=== PATIENT | female | born 1980 | race Caucasian/White ===

== ENCOUNTER 2017-06-20 05:53 | Inpatient (IN) | payer OTHER ==
[~2017-06-20] VITALS: Ht 165.1 cm; Wt 91.1 kg
[2017-06-20] VITALS (10 sets, daily range): BP systolic 102–124; BP diastolic 65–84; PULSE 102–111; TEMP 36.4–37.4; O2SAT 87–96; Ht 165.1 cm; Wt 91.1 kg
[~2017-06-20 05:53] MED LIST: MIRT15TA PO; NRN600 PO; SIMV40TA4 PO; SNQ/25 PO
[2017-06-20] MEDS ORDERED: GABA-112 PO (06:18)
[2017-06-20] MEDS ORDERED: GABA800T PO (06:18)
[2017-06-20 06:52] LABS: BASO ABS # 0.01 K/uL (0-0.2); EOS % 0.1 %; EOS ABS # 0.02 K/uL (0-0.5); HEMATOCRIT 37.7 % (37-47); HEMOGLOBIN 13.1 g/dL (12.0-16.0); LYMPH % 7.2 %; LYMPH ABS # 1.59 K/uL (1.2-3.4); MEAN CELL VOLUME 87.1 fL (80-100); MEAN CORPUSCULAR HEMOGLOBIN 30.3 pg (25-34); MEAN CORPUSCULAR HGB CONC 34.7 g/dl (32-36); MEAN PLATELET VOLUME 10.5 fL (7.4-10.4); MONO % 5.5 %; MONO ABS # 1.21 K/uL (0.11-0.59); NEUT % 86.7 %; NEUT ABS # 19.16 K/uL (1.4-6.5); PLATELET COUNT 236 K/uL (130-400); RED CELL DISTRIBUTION WIDTH CV 15.2 % (11.5-14.5); RED CELL DISTRIBUTION WIDTH SD 48.2 fL (36.4-46.3); WHITE BLOOD COUNT 22.09 K/uL (4.8-10.8)
[2017-06-20 06:56] LABS: ISTAT CREATININE 1.4 mg/dl (0.6-1.3); ISTAT IONIZED CALCIUM 1.17 mmol/l (1.12-1.32); ISTAT POTASSIUM 3.9 mEq/L (3.3-5.0)
[2017-06-20] MEDS ORDERED: CEFTRIAXONE SOD INJ 1 GM ADDVIAL IV STA (07:05)
--- NOTE | 2017-06-20 07:09 | EMERGENCY ROOM VISIT NOTE ---
History Report prepared by Shane: Speedy Last Under the Supervision of: Dr. Mark Marion M.D. First contact with patient: 06:33 Chief Complaint: OTHER COMPLAINT Stated Complaint: SEEING THINGS,ABD PAIN,VOMITING History of Present Illness The patient is a 36 year old female who presents to the Emergency Room with complaints of intermittent hallucinations beginning last night. The patient states that she was arrested last night, but notes that she has not taken any drugs today. She reports that she believed that she was hallucinating and talking to people who were not there. The patient states that she has not slept in the past three days. She notes that she has had a similar experience in the past when she was heavily intoxicated. She also complains of mild SOB, a headache, abdominal pain, chest pain in her upper chest, leg swelling, leg pain , and neck pain. She reports that she was falling a lot last night because she was unable to walk, causing her leg pain and swelling. The patient states that she was at the hospital yesterday for her neck pain. She denies any fever, urinary symptoms, taking any extra pills, and suicidal ideations. She notes that she has no history of mental health issues. Source of History: patient Onset: last night Position: head Quality: other (hallucinations) Timing: intermittent Associated Symptoms: + headache, + neck pain, + chest pain, + SOB (mild), + abdominal pain, No fevers, No urinary symptoms Note: She notes that she has not had a lot of sleep recently, leg swelling, and leg pain. She denies taking any extra pills and suicidal ideations. Review of Systems See HPI for pertinent positives & negatives. A total of 10 systems reviewed and were otherwise negative. Past Medical & Surgical Medical Problems: (1) Bilateral pneumonia (2) No chronic diseases present Old medical records were reviewed. Nurse's notes were reviewed and I agree with. Family History No pertinent family history stated. Social History Smoking Status: Current Every Day Smoker Drug Use: heroin Marital Status: single Occupation Status: unemployed Current/Historical Medications Scheduled Gabapentin (Neurontin), 200 MG PO TID Gabapentin (Neurontin), 800 MG PO TID Simvastatin (Zocor), 40 MG PO QPM Allergies Coded Allergies: No Known Allergies (Unverified , 06/20/17) Physical Exam Vital Signs Date Time Temp Pulse Resp B/P (MAP) Pulse Ox O2 Delivery O2 Flow Rate FiO2 12/16/17 08:31 114 20 99/49 88 Nasal Cannula 6.0 06/20/17 07:48 112 22 115/82 93 Nasal Cannula 6.0 06/20/17 07:09 99 22 126/95 92 Nasal Cannula 6.0 06/20/17 06:49 92 Nasal Cannula 6.0 06/20/17 06:49 92 Nasal Cannula 6.0 06/20/17 06:38 112 06/20/17 06:05 117 20 91 Nasal Cannula 6.0 06/20/17 06:03 36.7 127 22 150/87 74 Room Air Physical Exam General: Non-ill appearing 36 year old female in no acute distress. Appears comfortable on nasal cannula oxygen. Alert to person, place, and year, gets day wrong. HEENT: Normal cephalic atraumatic. Pupils are equal round and reactive to light. Extraocular movements are intact. Oropharynx is pink with moist mucous membranes. No swelling of the mouth lips or tongue. Neck: Supple with a midline trachea. No meningeal signs or stiffness, no JVD or bruits. No Stridor. Chest: Clear to auscultation bilaterally. No wheezes or rhonchi. No increased work of breathing. Heart: regular rate and rhythm. Abdomen: Soft nontender, nondistended without rebound guarding or rigidity. Extremities: No cyanosis clubbing or edema. No calf tenderness or assymetry Spine/Back. Non tender to palpation. No CVA tenderness Skin: Good turgor without rashes. Neurologic exam: Cranial nerves two through 12 are intact. Motor and sensation are intact and symmetrical throughout. No tremor. Medical Decision & Procedures ER Provider Diagnostic Interpretation: Radiology results as stated below per my review and radiologist interpretation: CHEST ONE VIEW PORTABLE FINDINGS: No focal lung consolidations. No pleural effusions. The heart is normal in size. Cervical spinal fusion hardware. Left supraclavicular subcutaneous emphysema. There is evidence for pneumomediastinum which extends into the neck. Gas within the apex of the left pleural is likely due to extension from the pneumomediastinum or could represent a tiny pneumothorax. Deformity within the right lateral ribs suggests old, healed fractures. IMPRESSION: Pneumomediastinum which extends into the extends into the neck. There is also trace gas within the left apical pleural space which could be due to extension of the pneumomediastinum or a tiny pneumothorax. Electronically signed by: Brian Bruce M.D. 06/20/2017 7:[address] NONCONTRAST Findings: There is soft tissue gas at the base of the skull. This corresponds to the pneumomediastinum seen on the prior chest x-ray. The paranasal sinuses and mastoid air cells are clear. The calvarium and skull base are intact. The ventricles and sulci are within normal limits. There is no mass, hematoma, midline shift, or acute infarct. Impression: No acute intracranial abnormality. Soft tissue gas at the skull base likely a result of the pneumomediastinum seen on the prior chest x-ray. Electronically signed by: Brian Bruce M.D. 06/20/2017 7:56 AM ABDOMEN AND PELVIS CT WITH IV CONTRAST FINDINGS: Please refer to the dedicated chest CT performed same day for further evaluation of the chest abnormalities. There is again noted pneumomediastinum. Trace extension of the pneumomediastinum into the retrocrural space. There is no pneumoperitoneum or pneumatosis. No acute fractures within the visualized osseous structures. The liver, gallbladder, pancreas, spleen, adrenal glands, and kidneys are unremarkable. No retroperitoneal lymphadenopathy. The bladder, uterus, and bilateral adnexa are unremarkable. No bowel wall thickening or obstruction. Normal appendix. IMPRESSION: 1. Please refer to the dedicated chest CT performed the same day for further evaluation of the chest abnormalities including the extensive pneumomediastinum. There is trace extension of the pneumomediastinum into the retrocrural space. 2. Otherwise, no significant abnormality identified within the abdomen or pelvis. 3. No bowel wall thickening or obstruction. 4. Normal appendix. Electronically signed by: Brian Bruce M.D. 06/20/2017 8:04 AM CHEST CTA for PULMONARY ARTERIES FINDINGS: There is extensive pneumomediastinum extends into the neck. No pneumothorax. No pleural effusions. The esophagus and trachea appear intact. Small amount of mucoid material within the proximal trachea and right mainstem bronchus. No mediastinal hematoma or mediastinal fluid. Trace posterior pericardial fluid. No mediastinal or hilar lymphadenopathy. Normal caliber thoracic aorta with no evidence for dissection. The heart is normal in size. Motion artifact resulting in suboptimal evaluation of some of the segmental and subsegmental pulmonary arteries. However, no definite filling defects identified within the pulmonary arteries to suggest pulmonary embolus. Old, healed right-sided rib fractures. No acute fractures identified within the visualized osseous structures. Extensive groundglass airspace opacities involving the majority of the upper lobes as well as patchy areas involving the bilateral lower lobes and right middle lobe. IMPRESSION: 1. Extensive pneumomediastinum which extends into the neck. 2. The esophagus and trachea are intact. 3. Trace pericardial fluid. No mediastinal hematoma or mediastinal fluid. 4. No evidence for pulmonary vessels limitations as described above. 5. Extensive groundglass airspace opacities seen throughout the lungs. This is consistent with a pneumonia.] Contusions are considered less likely. 6. Findings were discussed with Dr. Marion at 8:15 AM on 06/20/2017. Electronically signed by: Brian Bruce M.D. 06/20/2017 8:18 AM Laboratory Results 06/20/17 06:36 Red Blood Count 4.33, Mean Corpuscular Volume 87.1, Mean Corpuscular Hemoglobin 30.3, Mean Corpuscular Hemoglobin Concent 34.7, Mean Platelet Volume 10.5, Neutrophils (%) (Auto) 86.7, Lymphocytes (%) (Auto) 7.2, Monocytes (%) (Auto) 5.5, Eosinophils (%) (Auto) 0.1, Basophils (%) (Auto) 0.0, Neutrophils # (Auto) 19.16, Lymphocytes # (Auto) 1.59, Monocytes # (Auto) 1.21, Eosinophils # (Auto) 0.02, Basophils # (Auto) 0.01 06/20/17 06:36 Test 06/20/17 06:35 06/20/17 06:36 06/20/17 06:40 06/20/17 06:43 Lactic Acid Level 1.7 mmol/L (0.4-2.0) White Blood Count 22.09 K/uL (4.8-10.8) Red Blood Count 4.33 M/uL (4.2-5.4) Hemoglobin 13.1 g/dL (12.0-16.0) Hematocrit 37.7 % (37-47) Mean Corpuscular Volume 87.1 fL (80-100) Mean Corpuscular Hemoglobin 30.3 pg (25-34) Mean Corpuscular Hemoglobin Concent 34.7 g/dl (32-36) Platelet Count 236 K/uL (130-400) Mean Platelet Volume 10.5 fL (7.4-10.4) Neutrophils (%) (Auto) 86.7 % Lymphocytes (%) (Auto) 7.2 % Monocytes (%) (Auto) 5.5 % Eosinophils (%) (Auto) 0.1 % Basophils (%) (Auto) 0.0 % Neutrophils # (Auto) 19.16 K/uL (1.4-6.5) Lymphocytes # (Auto) 1.59 K/uL (1.2-3.4) Monocytes # (Auto) 1.21 K/uL (0.11-0.59) Eosinophils # (Auto) 0.02 K/uL (0-0.5) Basophils # (Auto) 0.01 K/uL (0-0.2) RDW Standard Deviation 48.2 fL (36.4-46.3) RDW Coefficient of Variation 15.2 % (11.5-14.5) Immature Granulocyte % (Auto) 0.5 % Immature Granulocyte # (Auto) 0.10 K/uL (0.00-0.02) D-Dimer 760 ug/L FEU (0-500) Est Creatinine Clear Calc Drug Dose 58.2 ml/min Estimated GFR () 53.3 Estimated GFR (Non- 46.0 BUN/Creatinine Ratio 21.9 (10-20) Calcium Level 9.6 mg/dl (8.5-10.1) Total Bilirubin 0.7 mg/dl (0.2-1) Aspartate Amino Transf (AST/SGOT) 102 U/L (15-37) Alanine Aminotransferase (ALT/SGPT) 47 U/L (12-78) Alkaline Phosphatase 89 U/L (45-117) Total Protein 8.4 gm/dl (6.4-8.2) Albumin 3.5 gm/dl (3.4-5.0) Globulin 4.9 gm/dl (2.5-4.0) Albumin/Globulin Ratio 0.7 (0.9-2) Lipase 49 U/L (73-393) Human Chorionic Gonadotropin, Qual NEG (NEG) Salicylates Level 4.2 mg/dl (2.8-20) Acetaminophen Level < 2 ug/ml (10-30) Bedside D-Dimer > 450 ng/mlFEU (0-450) Bedside Troponin I < 0.030 ng/ml (0-0.045) Bedside Hemoglobin 12.9 g/dl (12.0-16.0) Bedside Hematocrit 38 % (37-47) Bedside Sodium 142 mEq/L (135-144) Bedside Potassium 3.9 mEq/L (3.3-5.0) Bedside Chloride 108 mEq/L (101-112) Bedside Total CO2 24 mEq/l (24-31) Anion Gap 15.0 mmol/L (16-25) Bedside Blood Urea Nitrogen 30 mg/dl (7-18) Bedside Creatinine 1.4 mg/dl (0.6-1.3) Bedside Glucose (other) 108 mg/dl (70-99) Bedside Ionized Calcium (Aftab) 1.17 mmol/l (1.12-1.32) Test 06/20/17 06:49 06/20/17 07:50 Ethyl Alcohol mg/dL < 3.0 mg/dl (0-3) Influenza Type A Antigen Neg for Influ A (NEG) Influenza Type B Antigen Neg for Influ B (NEG) Laboratory studies as stated above per my review. Medications Administered Medications (Trade) Dose Ordered Sig/Mary Jane Route Start Time Stop Time Status Last Admin Dose Admin Ceftriaxone Sodium (Rocephin Inj) 2 gm NOW STAT IV 06/20/17 07:05 06/20/17 07:10 DC 06/20/17 07:14 2 GM Levofloxacin (Levaquin / D5W) 750 mg NOW STAT IV 06/20/17 08:15 06/20/17 08:17 DC 06/20/17 08:26 750 MG Sodium Chloride 1,000 ml @ 999 mls/hr Q1H1M STAT IV 06/20/17 08:16 06/20/17 09:16 DC 06/20/17 08:27 999 MLS/HR ECG Indication: altered mental status Rate (beats per minute): 114 Rhythm: sinus tachycardia Findings: no acute ischemic change, other (poor R wave progression) Comparison ECG Date: 05/22/2012 Change: no significant change ED Course 0635: Past medical records reviewed. The patient was evaluated in room A12, and a complete history and physical examination were performed. 0705: Rocephin Inj 2gm IV 0726: I reevaluated and updated the patient. She appears stable. She is awake and conversing. She notes that she has been feeling sick for months. 0758: I reevaluated and updated the patient. She is resting comfortably and has no new complaints. 0812: Upon reevaluation, the patient is stable. I discussed the results and treatment plan with the patient. She verbalized agreement of the treatment plan. The patient will be evaluated for further management. 0815: Levofloxacin 750mg IV 0817: I spoke to the radiologist who told me that the patient has a pneumomediastinum and pneumonia. 0845: I reevaluated the patient. She is resting comfortably. Her oxygen was bumped higher because she becomes more hypoxemic when she sleeps. Medical Decision Differential diagnoses include: cardiac disease, pulmonary disease, toxicologic symptoms, infectious symptoms, mental health symptoms, electrolyte/metabolic abnormality, PE, and trauma. This patient comes in as described above. She was brought in after apparently hallucinating. She was taken to senior care today. She does have a history in her chart of drug abuse although denies any. In triage she was noted to be hypoxemic. She's had multiple complaints while she is in the ER and they do seem to change when I see her. She tells me she's felt sick for about a month she also tells me she hasn't slept for about 3 days. She may have had some belly pain and. She does have a headache occasionally as well. No fall or trauma. Denies any alcohol use or intentional overdose. On my exam she appears well she answers most questions appropriately however does not get the date right. She has no focal neurologic deficits. She is nontoxic and non- lethargic appearing her neck is supple and freely mobile without any Kernig or Brudzinski signs. Extensive workup was obtained including multiple blood testing and blood cultures. Her white count was elevated at 22 however lactic acid is not elevated. Her chest x-ray shows increased markings centrally bilaterally concerning for either bilateral pneumonia or CHF. She also does have some pneumomediastinum. She has mild renal insufficiency although the rest of electrolytes look okay. her EKG shows some sinus tachycardia without ischemic changes. She was given Rocephin 2 g IV for broad-spectrum antibiotic coverage at as were sorting this out. I did do a CAT scan of her head as well as her chest and abdomen to rule out PE and other infectious etiologies as her d -dimer was elevated and she was hypoxemic. She was found to have large infiltrates bilaterally and was also given additional Levaquin 750 mg IV and 1 L IV normal saline bolus. The CAT scan of her head and abdomen unremarkable. She does have a large amount of pneumomediastinum. I think given her clinical picture she most likely had a pneumonia and has the pneumomediastinum from coughing. She appears in no distress she is mildly moderately hypoxemic but seems be tolerating oxygen well. She appears in no distress. I did discuss case Dr. Barajas and he is going to admit her. I'll also paged Dr. Carr to get pulmonary involved as well. The patient will be admitted for further inpatient treatment and evaluation Medication Reconcilliation Current Medication List: was personally reviewed by me Blood Pressure Screening Patient's blood pressure: Normal blood pressure Blood pressure disposition: Did not require urgent referral Consults Time Called: 0810 Consulting Physician: Dr. Barajas - [facility], [facility] [place] Returned Call: 0812 Discussed the patient's case. The patient will be evaluated for further management. Impression Primary Impression: Pneumomediastinum Additional Impressions: Pneumonia Hypoxemia Critical Care I have personally spent greater than 45 minutes of critical care time in the direct management of this patient. This includes bedside care, interpretation of diagnostic studies, and testing, discussion with consultants, patient, and family members, and other required patient management activities. This 45 minutes is in excess of all separately billable procedures. Scribe Attestation The scribe's documentation has been prepared under my direction and personally reviewed by me in its entirety. I confirm that the note above accurately reflects all work, treatment, procedures, and medical decision making performed by me. Departure Information Dispostion Being Evaluated By Hospitalist Referrals No Doctor, Assigned (PCP) Patient Instructions My [facility] Problem Qualifiers
[2017-06-20 07:10] LABS: ALBUMIN 3.5 gm/dl (3.4-5.0); CALCIUM 9.6 mg/dl (8.5-10.1); CREATININE 1.44 mg/dl (0.60-1.20); POTASSIUM 3.8 mmol/L (3.5-5.1)
[2017-06-20 07:13] LABS: TOTAL PROTEIN 8.4 gm/dl (6.4-8.2)
[2017-06-20] MEDS ORDERED: OPTIRAY 320 IV PRN (07:15)
--- NOTE | 2017-06-20 07:39 | DIAGNOSTIC IMAGING REPORT ---
CHEST ONE VIEW PORTABLE HISTORY: hypoxia COMPARISON: None. FINDINGS: No focal lung consolidations. No pleural effusions. The heart is normal in size. Cervical spinal fusion hardware. Left supraclavicular subcutaneous emphysema. There is evidence for pneumomediastinum which extends into the neck. Gas within the apex of the left pleural is likely due to extension from the pneumomediastinum or could represent a tiny pneumothorax. Deformity within the right lateral ribs suggests old, healed fractures. IMPRESSION: Pneumomediastinum which extends into the extends into the neck. There is also trace gas within the left apical pleural space which could be due to extension of the pneumomediastinum or a tiny pneumothorax. Electronically signed by: Brian Bruce M.D. 06/20/2017 7:37 AM Dictated Date/Time: 06/20/2017 7:34 AM
--- NOTE | 2017-06-20 07:57 | DIAGNOSTIC IMAGING REPORT ---
HEAD CT NONCONTRAST CT DOSE: 2423.66 mGy.cm HISTORY: eval for trauma TECHNIQUE: Multiaxial CT images of the head were performed without the use of intravenous contrast. Automated exposure control was utilized for this study. A dose lowering technique was utilized adhering to the principles of ALARA. Comparison: None. Findings: There is soft tissue gas at the base of the skull. This corresponds to the pneumomediastinum seen on the prior chest x-ray. The paranasal sinuses and mastoid air cells are clear. The calvarium and skull base are intact. The ventricles and sulci are within normal limits. There is no mass, hematoma, midline shift, or acute infarct. Impression: No acute intracranial abnormality. Soft tissue gas at the skull base likely a result of the pneumomediastinum seen on the prior chest x-ray. Electronically signed by: Brian Bruce M.D. 06/20/2017 7:56 AM Dictated Date/Time: 06/20/2017 7:51 AM
--- NOTE | 2017-06-20 08:05 | DIAGNOSTIC IMAGING REPORT ---
ABDOMEN AND PELVIS CT WITH IV CONTRAST CT DOSE: HISTORY: eval for elevated WBC TECHNIQUE: Multiaxial CT images of the abdomen and pelvis were performed following the use of intravenous contrast. A dose lowering technique was utilized adhering to the principles of ALARA. COMPARISON STUDY: None. FINDINGS: Please refer to the dedicated chest CT performed same day for further evaluation of the chest abnormalities. There is again noted pneumomediastinum. Trace extension of the pneumomediastinum into the retrocrural space. There is no pneumoperitoneum or pneumatosis. No acute fractures within the visualized osseous structures. The liver, gallbladder, pancreas, spleen, adrenal glands, and kidneys are unremarkable. No retroperitoneal lymphadenopathy. The bladder, uterus, and bilateral adnexa are unremarkable. No bowel wall thickening or obstruction. Normal appendix. IMPRESSION: 1. Please refer to the dedicated chest CT performed the same day for further evaluation of the chest abnormalities including the extensive pneumomediastinum. There is trace extension of the pneumomediastinum into the retrocrural space. 2. Otherwise, no significant abnormality identified within the abdomen or pelvis. 3. No bowel wall thickening or obstruction. 4. Normal appendix. Electronically signed by: Brian Bruce M.D. 06/20/2017 8:04 AM Dictated Date/Time: 06/20/2017 7:56 AM
[2017-06-20] MEDS ORDERED: LEVAQUIN 750MG / 150ML D5W IV STA (08:15)
[2017-06-20] MEDS ORDERED: SODIUM CHLORIDE 0.9% 1000ML 1,000 ML IV STA (08:16)
[2017-06-20] MEDS ORDERED: SODIUM CHLORIDE 0.9% 1000ML 1,000 ML IV ONE (08:16)
--- NOTE | 2017-06-20 08:19 | DIAGNOSTIC IMAGING REPORT ---
CHEST CTA for PULMONARY ARTERIES CT DOSE: HISTORY: Chest congestion. Mid chest pain. TECHNIQUE: Multiaxial CT images of the chest were performed following the intravenous administration of contrast to evaluate the pulmonary arteries. Maximal intensity projection images were also obtained. A dose lowering technique was utilized adhering to the principles of ALARA. COMPARISON STUDY: Chest 06/20/2017. FINDINGS: There is extensive pneumomediastinum extends into the neck. No pneumothorax. No pleural effusions. The esophagus and trachea appear intact. Small amount of mucoid material within the proximal trachea and right mainstem bronchus. No mediastinal hematoma or mediastinal fluid. Trace posterior pericardial fluid. No mediastinal or hilar lymphadenopathy. Normal caliber thoracic aorta with no evidence for dissection. The heart is normal in size. Motion artifact resulting in suboptimal evaluation of some of the segmental and subsegmental pulmonary arteries. However, no definite filling defects identified within the pulmonary arteries to suggest pulmonary embolus. Old, healed right-sided rib fractures. No acute fractures identified within the visualized osseous structures. Extensive groundglass airspace opacities involving the majority of the upper lobes as well as patchy areas involving the bilateral lower lobes and right middle lobe. IMPRESSION: 1. Extensive pneumomediastinum which extends into the neck. 2. The esophagus and trachea are intact. 3. Trace pericardial fluid. No mediastinal hematoma or mediastinal fluid. 4. No evidence for pulmonary vessels limitations as described above. 5. Extensive groundglass airspace opacities seen throughout the lungs. This is consistent with a pneumonia.] Contusions are considered less likely. 6. Findings were discussed with Dr. Marion at 8:15 AM on 06/20/2017. Electronically signed by: Brian Bruce M.D. 06/20/2017 8:18 AM Dictated Date/Time: 06/20/2017 8:04 AM
[2017-06-20] MEDS ORDERED: ALUMINUM/MAGNESIUM/SIMETH (MAALOX MAX) 30 ML UDC PO PRN (08:30)
[2017-06-20] MEDS ORDERED: ONDANSETRON INJ 2 MG/ML 2 ML VIAL IV PRN (08:30)
[2017-06-20] MEDS ORDERED: PIPERACILL/TAZOBAC IV 4.5 GM in DEXTROSE 5% 100ML 100 ML IV SCH (08:30)
[2017-06-20 08:57] LABS: INFLUENZA B ANTIGEN Neg for Influ B (NEG)
[2017-06-20] MEDS ORDERED: PIPERACILL/TAZOBAC CONSULT ACTIVE PRN (09:45)
[2017-06-20] MEDS ORDERED: PNEUMOCOCCAL POLYSACCHARIDES 25 MCG/0.5 ML VIAL/SYR IM. ONE (10:00)
[2017-06-20] MEDS ORDERED: INFLUENZA ADMINISTRATION CHARGE ONE (10:00)
[2017-06-20] MEDS ORDERED: PIPERACILL/TAZOBAC IV 3.375 GM in DEXTROSE 5% 100ML IV ONE (10:00)
[2017-06-20] MEDS ORDERED: INFLUENZA VIRUS QUAD VACCINE 0.5 ML SYR IM. ONE (10:00)
[2017-06-20] MEDS ORDERED: PNEUMOCOCCAL ADMINISTRATION CHARGE ONE (10:00)
[2017-06-20 12:03] LABS: HEP C IGG 13 YRS+OLDER_RFLX PRELIM POS (NEG)
[2017-06-20] MEDS: GABAPENTIN 800 MG TAB PO SCH ×2 (14:32→20:18)
[2017-06-20] MEDS: SODIUM CHLORIDE 0.9% 1000ML 1,000 ML IV SCH ×2 (14:33→23:48)
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
[2017-06-20] MEDS: PIPERACILL/TAZOBAC IV 3.375 GM in DEXTROSE 5% 100ML IV SCH ×2 (16:08→23:46)
--- NOTE | 2017-06-20 17:11 | History and Physical ---
History & Physical Date & Time of Service: Jun 20, 2017 at 17:02 Chief Complaint: Bilateral Pneumonia Primary Care Physician: No Doctor, Assigned History of Present Illness 36-year-old incarcerated female brought to our ER after was found to be hallucinating after arrest. The patient states over the last few weeks to months she's had increased cough has been nonproductive and increased dyspnea on exertion. She is also felt dizzy and one day prior to her rest she actually fell down onto her buttocks after entering her home. She does have a history of a seizure disorder but she does not feel this is a seizure she did not lose consciousness nor have any postevent confusion. The patient does admit to smoking cigarettes and marijuana and has smoked crack cocaine in the past she denies any recent exposure to cocaine or inhalation of other chemicals such as paint or computer duster. She also has not smoked any opiates that she is aware of mixed in with her marijuana. In the emergency room she was found have a markedly abnormal chest x-ray and CT scan consistent with bilateral pneumonia likely nontypical an elevated white blood cell count she was profoundly hypoxic but augmented nicely with the OxiMax. She knows to be hepatitis C positive has used IV drugs in the past and in the past she's been tested for HIV and hepatitis B and has been negative for both she does consent in the presence of the penitentiary guards accompanying her to have an HIV test redrawn and I educated her on the ramifications of the results Past Medical/Surgical History Cervical spine and lumbar spine surgery, reported seizure disorder reported peripheral neuropathy tobacco and marijuana abuse no alcohol use Family History Patient states that there is colon cancer and lung cancer in her family Social History Smoking Status: Current Every Day Smoker Alcohol Use: none Drug Use: heroin, marijuana Marital Status: single Occupational Status: unemployed Multi-Drug Resistant Organisms History of MDRO: No Allergies Coded Allergies: No Known Allergies (Unverified , 06/20/17) Home Medications Scheduled Gabapentin (Neurontin), 200 MG PO TID Gabapentin (Neurontin), 800 MG PO TID Simvastatin (Zocor), 40 MG PO QPM Review of Systems Constitutional: + weakness, No fever, No chills, No weight loss Eyes: No worsening of vision, No eye pain ENT: No hearing loss, No unusual epistaxis Respiratory: + cough, + sputum, + shortness of breath, + dyspnea on exertion, + dyspnea at rest Cardiovascular: + orthopnea, + PND, No chest pain, No edema Abdomen: No pain, No nausea, No vomiting, No diarrhea, No constipation Musculoskeletal: + joint pain, + muscle pain, + swelling Genitourinary - Female: No dysuria, No urinary frequency Neurologic: + weakness, + numbness/tingling, No memory loss, No paralysis Psychiatric: No depression symptoms, No anhedonism Endocrine: + fatigue, No excessive thirst Integumentary: No rash, No itch Physical Exam Vital Signs Date Time Temp Pulse Resp B/P (MAP) Pulse Ox O2 Delivery O2 Flow Rate FiO2 06/20/17 15:29 36.7 102 22 124/84 (97) 90 Nasal Cannula 6.0 06/20/17 12:14 90 Nasal Cannula 6.0 06/20/17 12:01 36.4 111 19 116/77 (90) 90 Nasal Cannula 6.0 06/20/17 09:43 36.5 111 20 119/81 94 Nasal Cannula 4.0 06/20/17 09:42 93 Nasal Cannula 4.0 06/20/17 09:41 36.5 111 20 119/81 (94) 93 Nasal Cannula 4.0 06/20/17 09:02 112 20 122/60 93 Oxymask 8.0 06/20/17 08:43 116 06/20/17 08:36 91 Oxymask 8.0 06/20/17 08:31 114 20 99/49 88 Nasal Cannula 6.0 06/20/17 07:48 112 22 115/82 93 Nasal Cannula 6.0 06/20/17 07:09 99 22 126/95 92 Nasal Cannula 6.0 06/20/17 06:49 92 Nasal Cannula 6.0 06/20/17 06:49 92 Nasal Cannula 6.0 06/20/17 06:38 112 06/20/17 06:05 117 20 91 Nasal Cannula 6.0 06/20/17 06:03 36.7 127 22 150/87 74 Room Air General Appearance: WD/WN, + moderate distress Head: normocephalic, atraumatic Eyes: PERRL, EOMI ENT: + pertinent finding (oral thrush was present) Neck: supple, no carotid bruits Respiratory/Chest: + respiratory distress, + decreased breath sounds, + accessory muscle use, + rhonchi Cardiovascular: no murmur, + tachycardia, + pertinent finding (no peripheral stigmata of endocarditis) Abdomen/GI: normal bowel sounds, non tender, soft Back: normal inspection, no CVA tenderness, + pertinent finding (mild paraspinous muscular tenderness) Extremities/Musculoskelatal: no pedal edema, normal range of motion Neurologic/Psych: alert, oriented x 3 Skin: normal color, warm/dry, no rash Diagnostics Laboratory Results Results Past 24 Hours Test 06/20/17 06:35 06/20/17 06:36 06/20/17 06:40 06/20/17 06:43 Range/Units Lactic Acid Level 1.7 0.4-2.0 mmol/L White Blood Count 22.09 4.8-10.8 K/uL Red Blood Count 4.33 4.2-5.4 M/uL Hemoglobin 13.1 12.0-16.0 g/dL Hematocrit 37.7 37-47 % Mean Corpuscular Volume 87.1 80-100 fL Mean Corpuscular Hemoglobin 30.3 25-34 pg Mean Corpuscular Hemoglobin Concent 34.7 32-36 g/dl Platelet Count 236 130-400 K/uL Mean Platelet Volume 10.5 7.4-10.4 fL Neutrophils (%) (Auto) 86.7 % Lymphocytes (%) (Auto) 7.2 % Monocytes (%) (Auto) 5.5 % Eosinophils (%) (Auto) 0.1 % Basophils (%) (Auto) 0.0 % Neutrophils # (Auto) 19.16 1.4-6.5 K/uL Lymphocytes # (Auto) 1.59 1.2-3.4 K/uL Monocytes # (Auto) 1.21 0.11-0.59 K/uL Eosinophils # (Auto) 0.02 0-0.5 K/uL Basophils # (Auto) 0.01 0-0.2 K/uL RDW Standard Deviation 48.2 36.4-46.3 fL RDW Coefficient of Variation 15.2 11.5-14.5 % Immature Granulocyte % (Auto) 0.5 % Immature Granulocyte # (Auto) 0.10 0.00-0.02 K/uL D-Dimer 760 0-500 ug/L FEU Sodium Level 138 136-145 mmol/L Potassium Level 3.8 3.5-5.1 mmol/L Chloride Level 106 98-107 mmol/L Carbon Dioxide Level 24 21-32 mmol/L Anion Gap 8.0 15.0 16-25 mmol/L Blood Urea Nitrogen 32 7-18 mg/dl Creatinine 1.44 0.60-1.20 mg/dl Est Creatinine Clear Calc Drug Dose 58.2 ml/min Estimated GFR () 53.3 Estimated GFR (Non- 46.0 BUN/Creatinine Ratio 21.9 10-20 Random Glucose 103 70-99 mg/dl Calcium Level 9.6 8.5-10.1 mg/dl Total Bilirubin 0.7 0.2-1 mg/dl Aspartate Amino Transf (AST/SGOT) 102 15-37 U/L Alanine Aminotransferase (ALT/SGPT) 47 12-78 U/L Alkaline Phosphatase 89 45-117 U/L Total Protein 8.4 6.4-8.2 gm/dl Albumin 3.5 3.4-5.0 gm/dl Globulin 4.9 2.5-4.0 gm/dl Albumin/Globulin Ratio 0.7 0.9-2 Lipase 49 73-393 U/L Human Chorionic Gonadotropin, Qual NEG NEG Salicylates Level 4.2 2.8-20 mg/dl Acetaminophen Level < 2 10-30 ug/ml Bedside D-Dimer > 450 0-450 ng/mlFEU Bedside Troponin I < 0.030 0-0.045 ng/ml Bedside Hemoglobin 12.9 12.0-16.0 g/dl Bedside Hematocrit 38 37-47 % Bedside Sodium 142 135-144 mEq/L Bedside Potassium 3.9 3.3-5.0 mEq/L Bedside Chloride 108 101-112 mEq/L Bedside Total CO2 24 24-31 mEq/l Bedside Blood Urea Nitrogen 30 7-18 mg/dl Bedside Creatinine 1.4 0.6-1.3 mg/dl Bedside Glucose (other) 108 70-99 mg/dl Bedside Ionized Calcium (Aftab) 1.17 1.12-1.32 mmol/l Test 06/20/17 06:49 06/20/17 07:50 06/20/17 10:14 Range/Units Ethyl Alcohol mg/dL < 3.0 0-3 mg/dl Influenza Type A Antigen Neg for Influ A NEG Influenza Type B Antigen Neg for Influ B NEG Hepatitis B Surface Antigen NEG NEG Hepatitis B Surface Antibody NEG Hepatitis C Antibody PRELIM POS NEG HIV (1&2) Ab and P24 Ag, 4th Gener NEG NEG Microbiology Results 06/20/17 Blood Culture, Received Pending 06/20/17 Blood Culture, Received Pending 06/20/17 MRSA DNA Surveillance Screen - Final, Complete Specimen Positive for MRSA by DNA Probe Diagnostic Radiology Patient had CT scan of her head without acute intracranial injury she had CT scan of her chest showing bilateral pneumonia and no pulmonary embolism with pneumo mediastinal present and a small left pneumothorax CT abdomen and pelvis without any significant abnormalities Normal EKG (except for tachycardia) Impression Assessment and Plan (1) Bilateral pneumonia (2) Pneumomediastinum (3) Hypoxemia 28-year-old incarcerated female with a history of hepatitis C and drug use presents with bilateral pneumonia Bilateral pneumonia and concern for atypical organisms, pulmonary medicine is seen and is also working out for possibility of a vasculitis or pneumonitis. There is some documentation of tuberculosis exposure but pulmonary medicine does not feel the patient needs to be in respiratory isolation at this time. QuantiFERON gold is sent Patient has been initiated on Zosyn and Levaquin 750 blood cultures obtained sputum cultures are ordered Hypoxic respiratory failure likely from an pneumonia augmented nicely with OxiMax-telemetry unit due to the degree of hypoxia, hypoxia is felt to be the origin of her hallucinations Oral thrush is seen concern for immune suppression HIV test is reordered and fluconazole as ordered With a history of seizure disorder we'll maintain her Neurontin Patient is on Zocor this will be held Lovenox apparent for DVT prevention Advanced Directives Existing Living Will: No Existing Power of [employer]: No VTE Prophylaxis VTE Risk Assessment Done? Y/N: Yes Risk Level: Moderate Problem Qualifiers (1) Bilateral pneumonia: Pneumonia type: due to unspecified organism Lung location: unspecified part of lung Qualified Codes: J18.9 - Pneumonia, unspecified organism
--- NOTE | 2017-06-20 18:10 | NUR ---
A: Patient became very restless, flushed, complaining about being cold then hot, pulse ox was 75% on RA, applied 9L oximask and oxygen stats rebounded to low 90's. Asked the guards to ring for help when the patient needs to be toileted.
[2017-06-20] MEDS: ACETAMINOPHEN 325 MG TAB PO PRN (18:38)
[2017-06-20 18:56] LABS: PTT PATIENT 31.3 SECONDS (21.0-31.0)
--- NOTE | 2017-06-20 20:00 | NUR ---
A: A: Pt found to be oriented but lethargic. Pt was able to answer questions appropriately but would quickly drift back to sleep. Pt has on a oxymask at 7L and is maintaining o2 sat's in the med 90's. VS WNL and Pt is ST in the 100's. See EMR for further documentation. Pt will continue to be monitored.
[2017-06-21] VITALS (12 sets, daily range): BP systolic 112–130; BP diastolic 69–80; PULSE 97–114; TEMP 36.6–37.4; O2SAT 90–99
--- NOTE | 2017-06-21 04:00 | NUR ---
A: Pt requiring an oxymask with 9L of o2. Pt's O2 saturations drop rapidly and she quickly becomes SOB if she takes the mask off for even the faintest moment. O2 saturations continue to remain in the mid 90's. VS stable and Pt remains in a ST in the 110's. See EMR for further documentation. Pt will continue to be monitored.
[2017-06-21] MEDS: ACETAMINOPHEN 325 MG TAB PO PRN ×2 (05:33→21:19)
[2017-06-21] MEDS: LEVOFLOXACIN / D5W 750 MG in PREMIXED IN D5W 150 ML IV SCH (08:00)
--- NOTE | 2017-06-21 08:09 | Progress Note ---
Subjective Date of Service: Jun 21, 2017. Subjective this pt looks improved but still with significant hypoxia Problem List Medical Problems: (1) Hypoxemia Status: Acute (2) Pneumomediastinum Status: Acute (3) Pneumonia Status: Acute Review of Systems Constitutional: + weakness, + fatigue, No fever, No chills Respiratory: + cough, + shortness of breath, + dyspnea on exertion, + dyspnea at rest, No sputum Cardiac: No chest pain, No edema Abdomen: No pain, No nausea, No vomiting Female : No dysuria, No urinary frequency, No hematuria Psychiatric: + depression symptoms, + anxiety Objective Vital Signs Date Time Temp Pulse Resp B/P (MAP) Pulse Ox O2 Delivery O2 Flow Rate FiO2 06/21/17 07:32 36.8 105 20 130/74 (92) 99 Mask 9.0 06/21/17 04:00 95 Room Air 8.0 06/21/17 04:00 37.4 108 24 128/80 (96) 95 Oxymask 8.0 06/21/17 00:00 36.7 106 21 114/74 (87) 90 Nasal Cannula 8.0 06/21/17 00:00 90 Room Air 8.0 06/20/17 20:00 96 Room Air 7.0 06/20/17 19:36 37.4 104 22 102/65 (77) 96 Oxymask 7.0 06/20/17 18:12 87 Oxymask 9.0 06/20/17 18:06 36.6 108 108/72 (84) 06/20/17 16:00 Oxymask 6.0 06/20/17 15:29 36.7 102 22 124/84 (97) 90 Nasal Cannula 6.0 06/20/17 12:14 90 Nasal Cannula 6.0 06/20/17 12:01 36.4 111 19 116/77 (90) 90 Nasal Cannula 6.0 06/20/17 09:43 36.5 111 20 119/81 94 Nasal Cannula 4.0 06/20/17 09:42 93 Nasal Cannula 4.0 06/20/17 09:41 36.5 111 20 119/81 (94) 93 Nasal Cannula 4.0 06/20/17 09:02 112 20 122/60 93 Oxymask 8.0 06/20/17 08:43 116 06/20/17 08:36 91 Oxymask 8.0 06/20/17 08:31 114 20 99/49 88 Nasal Cannula 6.0 Physical Exam General Appearance: WD/WN, + severe distress Eyes: normal inspection, sclerae normal Neck: supple, no adenopathy, + pertinent finding (subcutaneous crepitence) Respiratory/Chest: + decreased breath sounds, + accessory muscle use, + rhonchi Cardiovascular: no murmur, + tachycardia Abdomen: normal bowel sounds, non tender, soft Extremities: no pedal edema, no calf tenderness Neurologic/Psychiatric: alert, oriented x 3 Laboratory Results Last 24 Hours Test 06/20/17 10:14 06/20/17 18:25 06/21/17 07:59 Hepatitis B Surface Antigen NEG Hepatitis B Surface Antibody NEG Hepatitis C Antibody PRELIM POS HIV (1&2) Ab and P24 Ag, 4th Gener NEG Prothrombin Time 10.6 SECONDS Prothromb Time International Ratio 1.0 Activated Partial Thromboplast Time 31.3 SECONDS Partial Thromboplastin Ratio 1.2 Assessment and Plan (1) Bilateral pneumonia Assessment & Plan: pt has MRSA swab positive adding vancomycin to zosyn and levaquin (2) Pneumomediastinum (3) Hypoxemia (4) Acute renal failure (5) Hepatitis C (6) Leukocytosis 28-year-old incarcerated female with a history of hepatitis C and drug use presents with bilateral pneumonia Bilateral pneumonia and concern for atypical organisms, pulmonary medicine is seen and is also working out for possibility of a vasculitis or pneumonitis. There is some documentation of tuberculosis exposure but pulmonary medicine does not feel the patient needs to be in respiratory isolation at this time. QuantiFERON gold is sent Patient has been initiated on Zosyn and Levaquin 750, mrsa swab is positive, adding vancomycin 06/21 blood cultures obtained sputum cultures are ordered Hypoxic respiratory failure improving but still significant, hypoxia is felt to be the origin of her hallucinations Acute kidney injury maintian ivf and follow Oral thrush is seen concern for immune suppression HIV test negative, hep C positive, fluconazole as ordered history of seizure disorder continue Neurontin Patient is on Zocor this will be held Lovenox apparent for DVT prevention Problem Qualifiers (1) Bilateral pneumonia: Pneumonia type: due to unspecified organism Lung location: unspecified part of lung Qualified Codes: J18.9 - Pneumonia, unspecified organism (2) Hepatitis C: Viral hepatitis chronicity: unspecified
[2017-06-21 08:31] LABS: HEMATOCRIT 32.8 % (37-47); HEMOGLOBIN 11.2 g/dL (12.0-16.0); MEAN CELL VOLUME 87.9 fL (80-100); MEAN CORPUSCULAR HGB CONC 34.1 g/dl (32-36); MEAN PLATELET VOLUME 10.1 fL (7.4-10.4); PLATELET COUNT 200 K/uL (130-400); RED CELL DISTRIBUTION WIDTH CV 15.7 % (11.5-14.5); RED CELL DISTRIBUTION WIDTH SD 50.8 fL (36.4-46.3); WHITE BLOOD COUNT 12.85 K/uL (4.8-10.8)
[2017-06-21] MEDS: GABAPENTIN 800 MG TAB PO SCH ×3 (08:50→21:12)
[2017-06-21] MEDS: ENOXAPARIN 40 MG/0.4 ML SYR SQ SCH (08:51)
[2017-06-21] MEDS: PIPERACILL/TAZOBAC IV 3.375 GM in DEXTROSE 5% 100ML IV SCH ×3 (08:51→23:59)
[2017-06-21] MEDS: FLUCONAZOLE SUSP 100 MG/10 ML UDP PO SCH (09:00)
[2017-06-21 09:07] LABS: CALCIUM 8.3 mg/dl (8.5-10.1); CREATININE 0.87 mg/dl (0.60-1.20); POTASSIUM 3.3 mmol/L (3.5-5.1)
[2017-06-21] MEDS: SODIUM CHLORIDE 0.9% 1000ML 1,000 ML IV SCH ×2 (10:23→21:12)
--- NOTE | 2017-06-21 10:29 | DIAGNOSTIC IMAGING REPORT ---
VENOUS DOPPLER LWR EXT BILA CLINICAL HISTORY: 36 years-old Female presenting with Rule out DVTs, bilateral pneumonia, lower extremity edema left greater than right. TECHNIQUE: Real-time grayscale and color and spectral Doppler ultrasound imaging of the veins of the bilateral lower extremities was performed. Compression and augmentation were also utilized. COMPARISON: CT of the chest from 06/20/2017. FINDINGS: Right: Common femoral vein: Patent. Femoral vein: Patent. Greater saphenous vein: Patent. Popliteal vein: Patent. Calf veins: Patent. Left: Common femoral vein: Patent. Femoral vein: Patent. Greater saphenous vein: Patent. Popliteal vein: Patent. Calf veins: Patent. Other: None. IMPRESSION: No evidence of deep venous thrombosis. Electronically signed by: Herson Delong M.D. 06/21/2017 10:28 AM Dictated Date/Time: 06/21/2017 10:26 AM
[2017-06-21] MEDS ORDERED: VANCOMYCIN CONSULT ACTIVE PRN (11:30)
--- NOTE | 2017-06-21 11:44 | Pharmacy Progress Note ---
Pharmacy Abx Initial Consult Date of Service Jun 21, 2017. Pharmacy Dosing Scope Date of Consult: 06/21/17 Consultation requested by: Dr. Barajas Pharmacy is consulted to initiate Vancomycin IV dosing therapy, order appropriate labs and adjust drug dose/frequency. Subjective The patient is a 36 year old female admitted on Jun 20, 2017 at 08:32. Objective Height (Feet): 5 Height (Inches): 5.00 Weight (Kilograms): 88.400 Vital Signs (Past 12Hrs) Vital Signs Past 12 Hours Date Time Temp Pulse Resp B/P (MAP) Pulse Ox O2 Delivery O2 Flow Rate FiO2 06/21/17 11:28 36.6 98 19 116/74 (88) 93 Mask 9.0 06/21/17 09:12 99 Venturi Mask 9.0 06/21/17 08:21 95 Room Air 9.0 06/21/17 07:32 36.8 105 20 130/74 (92) 99 Mask 9.0 06/21/17 04:00 95 Room Air 8.0 06/21/17 04:00 37.4 108 24 128/80 (96) 95 Oxymask 8.0 06/21/17 00:00 36.7 106 21 114/74 (87) 90 Nasal Cannula 8.0 06/21/17 00:00 90 Room Air 8.0 Lab Results (24Hrs) Laboratory Tests (24 Hours) Test 06/21/17 07:59 White Blood Count 12.85 K/uL (4.8-10.8) H Micro Results Date/Time Source Procedure Growth Status 06/20/17 14:14 Blood Blood Culture Pending Received 06/20/17 14:06 Blood Blood Culture Pending Received 06/20/17 10:40 Nasal MRSA DNA Surveillance Screen - Final Specimen Positive for MRSA by DNA Probe Complete Assessment & Plan Assessment 36 year old incarcerated female with history of Hepatitis C, IV drug use admitted to the hospital hypoxic. Plan Vancomycin for treatment of bilateral Pneumonia with positive MRSA nasal swab. Vancomycin IV * Loading dose: 2000 mg (22.7 mg/kg) x1 dose ordered for noon today. * Maintenance dose: 1500 mg IV (17 mg/kg) every 12 hours to start tonight. * Estimated P'kinetics: Ke = 0.084 /hr, t1/2 = 8.3 hrs, Vd = 0.7 L/kg/ * Goal trough level for Pneumonia: 15 to 30 mcg/mL * Trough Vancomycin level ordered for 06/23/17 before dose at 1000. Pharmacy will continue to follow and will adjust dose/frequency as necessary. Thank you.
[2017-06-21] MEDS ORDERED: VANCOMYCIN IV 2,000 MG in SODIUM CHLORIDE 0.9% 500ML 500 ML IV SCH (12:00)
--- NOTE | 2017-06-21 15:42 | Pulmonology Progress Note ---
Pulmonary Progress Note Date of Service Jun 21, 2017. Attending Dr. Carr Subjective Patient was asleep but easily arousable. During our conversation she was not very engaging but did not complain of any active signs or symptoms. Objective Patient easily arousable able to complete full sentences and set up in bed showing no signs of respiratory insufficiency: VS: I/Os: +2.3L SaO2%: 90-99% FiO2: 5-9 liters RR: 19-24 HR: 97-108 Resp: Minimal rhonchi bilaterally Card: S1-S2 regular rate and rhythm no murmurs rubs or gallops appreciated Abd: Positive bowel sounds soft nontender Ext: 1+ pitting edema left greater than right Studies WBC: 22K--13K Ig IgA: 202 IgM: >245 Pending: ANCA panel, mycoplasma, hypersensitivity pneumonitis panel, QuantiFERON GOLD Microbiology: Blood cultures pending Nasal MRSA DNA probe: Positive Venous Dopplers bilateral lower extremity: Within normal limits Active pulmonary Medications: 1. Vancomycin IV 2. Fluconazole 100 mg 3. Levofloxacin 750 mg 4. Zosyn Assessment & Plan 36-year-old female mid with bilateral pulmonary infiltrates, pneumomediastinum associated hypoxemia: 1. Pulmonary: At this time the patient is overall respiratory status has improved were able to titrate down on her oxygen supplementation. Her workup has not shown any definitive findings but there is still multiple labs/serum studies are pending such as hypersensitivity pneumonitis panel, legionnaires workup, mycoplasma, vasculitic and connective tissue disease evaluations. Along with that sputum evaluation for atypical infection/AFB, fungal bacterial and possible legionnaires an eosinophil percentage is also pending. As the patient is improving as she has had a notable drop her leukocytosis and I agree with continuing current antibiotic therapy especially since the patient is MRSA nasal positive. 2. Lower extremity swelling: No signs of DVTs by bilateral lower extremity Doppler evaluation. 3. Thrush: Patient currently being treated with fluconazole 100 mg daily for 7 day window. Data Medications: Current Inpatient Medications Medications (Trade) Dose Ordered Sig/Mary Jane Route Start Time Stop Time Status Last Admin Dose Admin Ioversol (Optiray 320) 111 ml UD PRN IV 06/20/17 07:15 06/24/17 07:14 Acetaminophen (Tylenol Tab) 650 mg Q4H PRN PO 06/20/17 08:30 07/20/17 08:29 12/17/17 05:33 650 MG Al Hydrox/Mg Hydrox/Simethicone (Maalox Max Susp) 15 ml Q4H PRN PO 06/20/17 08:30 07/20/17 08:29 Ondansetron HCl (Zofran Inj) 4 mg Q6H PRN IV 06/20/17 08:30 07/20/17 08:29 Levofloxacin 750 mg/Prmx 150 ml @ 100 mls/hr Q24H IV 06/21/17 08:00 06/27/17 07:59 06/21/17 08:00 100 MLS/HR Piperacillin Sod/ Tazobactam Sod 3.375 gm/Dextrose 115 ml @ 28.75 mls/ hr Q8H IV 06/20/17 16:00 06/27/17 15:59 06/21/17 08:51 28.75 MLS/HR Piperacillin Sod/ Tazobactam Sod (Consult) 1 ea UD PRN N/A 06/20/17 09:45 07/20/17 09:44 Gabapentin (Neurontin Tab) 800 mg TID PO 06/20/17 14:00 07/20/17 13:59 06/21/17 13:24 800 MG Sodium Chloride 1,000 ml @ 100 mls/hr Q10H IV 06/20/17 14:00 07/20/17 13:59 06/21/17 10:23 100 MLS/HR Fluconazole (Diflucan Susp) 100 mg QAM PO 06/21/17 09:00 06/27/17 08:59 06/21/17 09:00 100 MG Enoxaparin Sodium (Lovenox Inj) 40 mg QAM SQ 06/21/17 09:00 07/21/17 08:59 06/21/17 08:51 40 MG Vancomycin HCl (Consult) 1 ea UD PRN N/A 06/21/17 11:30 07/21/17 11:29 Vancomycin HCl 1500 mg/Sodium Chloride 530 ml @ 200 mls/hr Q12H IV 06/21/17 22:00 06/28/17 09:59 I & O: 24-Hour Column 06/22/17 08:00 Intake Total 1994 ml Balance 1994 ml Vital Signs: Date Time Temp Pulse Resp B/P (MAP) Pulse Ox O2 Delivery O2 Flow Rate FiO2 06/21/17 15:24 37.2 97 22 116/76 (89) 92 Oxymask 5.0 06/21/17 12:54 95 Room Air 9.0 06/21/17 11:28 36.6 98 19 116/74 (88) 93 Mask 9.0 06/21/17 09:12 99 Venturi Mask 9.0 06/21/17 08:21 95 Room Air 9.0 06/21/17 07:32 36.8 105 20 130/74 (92) 99 Mask 9.0 06/21/17 04:00 95 Room Air 8.0 06/21/17 04:00 37.4 108 24 128/80 (96) 95 Oxymask 8.0 06/21/17 00:00 36.7 106 21 114/74 (87) 90 Nasal Cannula 8.0 06/21/17 00:00 90 Room Air 8.0 06/20/17 20:00 96 Room Air 7.0 06/20/17 19:36 37.4 104 22 102/65 (77) 96 Oxymask 7.0 06/20/17 18:12 87 Oxymask 9.0 06/20/17 18:06 36.6 108 108/72 (84) 06/20/17 16:00 Oxymask 6.0 Laboratory Results: Last 24 Hours Test 06/20/17 18:25 06/21/17 07:59 Prothrombin Time 10.6 SECONDS Prothromb Time International Ratio 1.0 Activated Partial Thromboplast Time 31.3 SECONDS Partial Thromboplastin Ratio 1.2 White Blood Count 12.85 K/uL Red Blood Count 3.73 M/uL Hemoglobin 11.2 g/dL Hematocrit 32.8 % Mean Corpuscular Volume 87.9 fL Mean Corpuscular Hemoglobin 30.0 pg Mean Corpuscular Hemoglobin Concent 34.1 g/dl RDW Standard Deviation 50.8 fL RDW Coefficient of Variation 15.7 % Platelet Count 200 K/uL Mean Platelet Volume 10.1 fL Sodium Level 138 mmol/L Potassium Level 3.3 mmol/L Chloride Level 110 mmol/L Carbon Dioxide Level 23 mmol/L Anion Gap 5.0 mmol/L Blood Urea Nitrogen 17 mg/dl Creatinine 0.87 mg/dl Est Creatinine Clear Calc Drug Dose 96.3 ml/min Estimated GFR () 97.9 Estimated GFR (Non- 84.5 BUN/Creatinine Ratio 19.0 Random Glucose 124 mg/dl Calcium Level 8.3 mg/dl Immunoglobulin G 719.0 mg/dL Immunoglobulin A 202.0 mg/dL Immunoglobulin M 245.0 mg/dL
--- NOTE | 2017-06-21 20:00 | NUR ---
A: Sleeping soundly, answer questions appropriately, IV's infusing, voiding dark yellow urine, poor appetite.
[2017-06-21] MEDS ORDERED: VANCOMYCIN IV 1,500 MG in SODIUM CHLORIDE 0.9% 500ML 500 ML IV SCH (22:00)
[2017-06-22] VITALS (9 sets, daily range): BP systolic 106–122; BP diastolic 68–81; PULSE 85–114; TEMP 36.4–37.6; O2SAT 93–96
--- NOTE | 2017-06-22 00:01 | NUR ---
A/ID: REFER TO EMR FOR HEAD TO TOE ASSESSMENT. PT DENIES COMPLAINTS OF PAIN OR SHORTNESS OF BREATH AT PRESENT TIME. VSS. IV FLUIDS AND INT ABX PER ORDERS. PLACED PT ON N.C. AT THIS TIME AT 5L HUMIDIFIED OXYGEN- CONTINUOUS PULSE OX INTACT. GUARDS X2 AT BEDSIDE. CALL SANCHEZ WITHIN REACH, WILL CONTINUE TO MONITOR. UNKNOWN D/C AT THIS TIME.
--- NOTE | 2017-06-22 04:00 | NUR ---
A: REFER TO EMR FOR HEAD TO TOE ASSESSMENT. PT DENIES COMPLAINTS OF PAIN OR SHORTNESS OF BREATH AT PRESENT TIME. VSS. IV FLUIDS PER ORDERS. GUARDS X2 AT BEDSIDE. CALL SANCHEZ WITHIN REACH, WILL CONTINUE TO MONITOR.
[2017-06-22] MEDS: PIPERACILL/TAZOBAC IV 3.375 GM in DEXTROSE 5% 100ML IV SCH ×3 (07:37→23:40)
[2017-06-22] MEDS: SODIUM CHLORIDE 0.9% 1000ML 1,000 ML IV SCH (07:37)
[2017-06-22] MEDS: LEVOFLOXACIN / D5W 750 MG in PREMIXED IN D5W 150 ML IV SCH (07:37)
[2017-06-22 07:57] LABS: CALCIUM 8.2 mg/dl (8.5-10.1); CREATININE 0.66 mg/dl (0.60-1.20); POTASSIUM 3.3 mmol/L (3.5-5.1)
[2017-06-22] MEDS: FLUCONAZOLE SUSP 100 MG/10 ML UDP PO SCH (09:00)
--- NOTE | 2017-06-22 09:10 | Family Medicine Progress Note ---
Progress Note Date of Service Jun 22, 2017. Subjective Pt evaluation today including: conversation w/ patient, physical exam, chart review, lab review, review of inpatient medication list Pain: No pain reported PO Intake: Tolerating PO intake Voiding: no voiding problems Ms. Oliver reports she feels slightly better today. She states she still feels short of breath, worse with exertion. She states she remains with her occasional cough that is non-productive. She also reports she had another episode of hallucinations last night where she was lying in bed and saw a dinosaur outside her window. She denies chest pain, abdominal pain or swelling in her legs. Constitutional: No fever, No chills Respiratory: + cough, + wheezing, + shortness of breath, + dyspnea on exertion, No sputum, No hemoptysis Cardiovascular: No chest pain Abdomen: No pain, No nausea, No vomiting, No diarrhea All Other Systems: Reviewed and Negative Medications Current Inpatient Medications Medications (Trade) Dose Ordered Sig/Mary Jane Route Start Time Stop Time Status Last Admin Dose Admin Ioversol (Optiray 320) 111 ml UD PRN IV 06/20/17 07:15 06/24/17 07:14 Acetaminophen (Tylenol Tab) 650 mg Q4H PRN PO 06/20/17 08:30 07/20/17 08:29 06/21/17 21:19 650 MG Al Hydrox/Mg Hydrox/Simethicone (Maalox Max Susp) 15 ml Q4H PRN PO 06/20/17 08:30 07/20/17 08:29 Ondansetron HCl (Zofran Inj) 4 mg Q6H PRN IV 06/20/17 08:30 07/20/17 08:29 Levofloxacin 750 mg/Prmx 150 ml @ 100 mls/hr Q24H IV 06/21/17 08:00 06/27/17 07:59 06/22/17 07:37 100 MLS/HR Piperacillin Sod/ Tazobactam Sod 3.375 gm/Dextrose 115 ml @ 28.75 mls/ hr Q8H IV 06/20/17 16:00 06/27/17 15:59 06/22/17 07:37 28.75 MLS/HR Piperacillin Sod/ Tazobactam Sod (Consult) 1 ea UD PRN N/A 06/20/17 09:45 07/20/17 09:44 Gabapentin (Neurontin Tab) 800 mg TID PO 06/20/17 14:00 07/20/17 13:59 06/21/17 21:12 800 MG Sodium Chloride 1,000 ml @ 100 mls/hr Q10H IV 06/20/17 14:00 07/20/17 13:59 06/22/17 07:37 100 MLS/HR Fluconazole (Diflucan Susp) 100 mg QAM PO 06/21/17 09:00 06/27/17 08:59 06/21/17 09:00 100 MG Enoxaparin Sodium (Lovenox Inj) 40 mg QAM SQ 06/21/17 09:00 07/21/17 08:59 06/21/17 08:51 40 MG Vancomycin HCl (Consult) 1 ea UD PRN N/A 06/21/17 11:30 07/21/17 11:29 Vancomycin HCl 1500 mg/Sodium Chloride 530 ml @ 200 mls/hr Q12H IV 06/21/17 22:00 06/28/17 09:59 06/21/17 22:05 200 MLS/HR Objective Vital Signs Date Time Temp Pulse Resp B/P (MAP) Pulse Ox O2 Delivery O2 Flow Rate FiO2 06/22/17 08:47 Oxymask 4.0 06/22/17 08:47 93 Nasal Cannula 5.0 06/22/17 08:11 37.0 102 19 114/72 (86) 94 Nasal Cannula 5.0 06/22/17 04:45 37.6 114 20 110/69 (83) 94 Nasal Cannula 5.0 06/22/17 04:00 Oxymask 4.0 06/21/17 23:59 Oxymask 4.0 06/21/17 23:07 37.2 106 20 112/69 (83) 96 Oxymask 4.0 06/21/17 20:00 92 Oxymask 4.0 06/21/17 19:51 37.2 114 20 122/77 (92) 91 Nasal Cannula 4.0 06/21/17 16:30 95 Room Air 9.0 06/21/17 15:24 37.2 97 22 116/76 (89) 92 Oxymask 5.0 06/21/17 12:54 95 Room Air 9.0 06/21/17 11:28 36.6 98 19 116/74 (88) 93 Mask 9.0 06/21/17 09:12 99 Venturi Mask 9.0 Physical Exam General Appearance: WD/WN, no apparent distress Respiratory/Chest: chest non-tender, no respiratory distress, no accessory muscle use, + decreased breath sounds, + wheezing, + pertinent finding ( decreased air entry at bases) Cardiovascular: regular rate, rhythm, no edema, no gallop, no JVD, no murmur Abdomen: normal bowel sounds, non tender, soft, no organomegaly, no pulsatile mass Laboratory Results Last 24 Hours Test 06/21/17 16:05 06/22/17 07:10 Urine Color YELLOW Urine Appearance CLOUDY Urine pH 5.0 Urine Specific [place] 1.033 Urine Protein 1+ Urine Glucose (UA) NEG Urine Ketones 1+ Urine Occult Blood 2+ Urine Nitrite NEG Urine Bilirubin NEG Urine Urobilinogen NEG Urine Leukocyte Esterase NEG Urine WBC (Auto) 5-10 /hpf Urine RBC (Auto) 0-4 /hpf Urine Hyaline Casts (Auto) 5-10 /lpf Urine Epithelial Cells (Auto) >30 /lpf Urine Bacteria (Auto) NEG Urine Yeast (Auto) Urine Opiates Screen POS Urine Methadone, Qualitative NEG Urine Barbiturates NEG Urine Phencyclidine (PCP) Level NEG Ur Amphetamine/Methamphetamine NEG MDMA (Ecstasy) Screen NEG Urine Benzodiazepines Screen NEG Urine Cocaine Metabolite POS Urine Marijuana (THC) POS Sodium Level 138 mmol/L Potassium Level 3.3 mmol/L Chloride Level 107 mmol/L Carbon Dioxide Level 22 mmol/L Anion Gap 8.0 mmol/L Blood Urea Nitrogen 7 mg/dl Creatinine 0.66 mg/dl Est Creatinine Clear Calc Drug Dose 129.0 ml/min Estimated GFR () 129.9 Estimated GFR (Non- 112.1 BUN/Creatinine Ratio 9.8 Random Glucose 95 mg/dl Calcium Level 8.2 mg/dl Assessment and Plan Ms. Oliver is a 36 year old incarcerated female with a history of hepatitis C and drug use who presented with bilateral pneumonia. Hypoxic Respiratory Failure secondary to Bilateral Pneumonia - thank you to pulmonary for consult -> Hypersensitivity pneumonitis panel, Legionella, mycoplasma & vasculitic and connective tissue workup still pending -> QuantiFERON Gold still pending. - continue zosyn, levaquin and vancomycin, given positive MRSA swab - currently on 5L of oxygen via nasal cannula, oxygen demand has slowly improved - start levalbuterol/ipratropium nebs Hallucinations - likely secondary to hypoxia and illness, given that her oxygen has been off both times when she has had the hallucinations - head CT negative Acute Kidney Injury - creatinine improved from 1.4 to 0.66 - d/c IV fluids Hypokalemia - potassium 3.3 today, given 20 mEq of oral potassium - recheck tomorrow - magnesium normal at 2.2 Low Phosphate - phosphate 2.1 today - will replace with [id number] 1 tablet q4h x3 doses - recheck tomorrow Oral Thrush - continue fluconazole - HIV test negative Seizure Disorder - continue gabapentin Hyperlipidemia - hold simvastatin Code: Full DVT Prophylaxis: lovenox Disposition: remains on telemetry Resident Physician Supervision Note: I interviewed and examined the patient. Discussed with Dr. Alanis Lopez and agree with findings and plan as documented in the note. Any exceptions or clarifications are listed here: None Patient admitted with significant bilateral pneumonia, positive MRSA swab necessitated vancomycin overall clinical improvement Vitals are stable oxygen requirement stools at 5 L Cardiac exam is regular lungs are much more clear decreased breath sounds at the left base Bilateral pneumonia with atypical features continuing triple anabolic therapy with direction from pulmonary medicine to de-escalate Chronic hepatitis C will need outpatient follow-up Documented By: Keith Barajas Resident Tracking Resident Involvement: Resident Care Provided Care Provided: Adult Hospital Medicine
[2017-06-22] MEDS: ENOXAPARIN 40 MG/0.4 ML SYR SQ SCH (09:29)
[2017-06-22] MEDS: GABAPENTIN 800 MG TAB PO SCH ×3 (09:29→21:34)
[2017-06-22 10:00] LABS: PHOSPHORUS 2.1 mg/dl (2.5-4.9)
--- NOTE | 2017-06-22 10:31 | Pharmacy Progress Note ---
Pharmacy Abx Dose Short Note Date of Service Jun 22, 2017. Assessment & Plan Assessment * 36 year old female receiving vancomycin + Zosyn IV for treatment of bilateral pneumonia * Day # 2 of IV vancomycin therapy and day # 3 IV Zosyn * + MRSA nasal swab * Renal fxn has improved based upon labs Plan Vancomycin * Change to 1250 mg (13.7mg/kg) IV every 8 hours secondary to improved renal fxn * Goal trough level for pulm infxn : 15 to 20 mcg/mL * Trough level ordered for: 06/23/17 w/ 4rd dose of new regimen * Pkinetic estimates: half-life ~7-8 hours, Vd 0.7L/kg Zosyn * Continue current dose of 3.375gm ext-infusion Q 8hrs for eCrcl > 20 Pharmacy will continue to follow and will adjust dose/frequency as necessary. Thank you.
[2017-06-22] MEDS ORDERED: POTASSIUM CHLORIDE 20 MEQ TABCR PO STA (10:37)
[2017-06-22] MEDS ORDERED: LEValbuterol HFA 15GM INHALER INH PRN (10:45)
[2017-06-22] MEDS: VANCOMYCIN IV 1,250 MG in SODIUM CHLORIDE 0.9% 250ML 250 ML IV SCH ×2 (10:58→18:51)
--- NOTE | 2017-06-22 13:18 | Pulmonology Progress Note ---
Pulmonary Progress Note Date of Service Jun 22, 2017. Attending Dr. Baker Subjective Patient seen and examined. She denies any coughing, chest pain or shortness of breath. She does states that she does have intermittent chest heaviness. None at the current time. Objective Vital signs reviewed. MAXIMUM TEMPERATURE 37.6, blood pressure 106/73 to 114/72 , pulse 98-114 respiratory rate 19-20, pulse oximetry 93-96% on 4-5 L /min. She is currently 3.2 L positive. Gen.: Resting comfortably in bed. Eyes closed but responds appropriately. HEENT: Abrasion of chin CVS: S1-S2 regular rate and rhythm, no murmurs rubs or gallops appreciated Lungs: Crackles bilaterally Abdomen: Soft nontender, nondistended, and bowel sounds positive Extremities: No clubbing, no cyanosis, trace edema bilaterally Laboratory data reviewed. Imaging reviewed. Medications reviewed. Other studies WBC: 22K--13K Ig IgA: 202 IgM: >245 Pending: ANCA panel, mycoplasma, hypersensitivity pneumonitis panel, QuantiFERON GOLD HIV 1 and 2 antibodies negative Microbiology: Blood cultures 04/20/2017 showing no growth to date Nasal MRSA DNA probe: Positive Venous Dopplers bilateral lower extremity: Within normal limits Active pulmonary Medications: 1. Vancomycin IV 1.25 every 8 hours 2. Fluconazole 100 mg daily 3. Levofloxacin 750 mg IV daily 4. Zosyn 3.375 g every 8 hours Assessment & Plan Hypoxemic respiratory failure Bilateral pulmonary opacities Pneumomediastinum Oral candidiasis Tonya appears to be improving somewhat from respiratory standpoint. She is requiring less oxygen. Currently on 5 L nasal cannula and saturating well. She appears to be comfortable. At the current time, continue his supplemental oxygen to maintain an SaO2 above 92%. Pneumomediastinum will likely resolve spontaneously. No aggressive intervention needed at this time. Marijuana smoking is the likely culprit. Smoking cessation counseling provided. Continue with nebulizers every 4-6 hours. I would continue to treat for pneumonia with broad-spectrum antibiotics of vancomycin, Zosyn and Levaquin. Hypersensitivity pneumonitis panel, Legionella, mycoplasma as well as vasculitic and connective tissue workup still pending. QuantiFERON Gold still pending. Continue to treat with fluconazole for oral thrush. Data Medications: Current Inpatient Medications Medications (Trade) Dose Ordered Sig/Mary Jane Route Start Time Stop Time Status Last Admin Dose Admin Ioversol (Optiray 320) 111 ml UD PRN IV 06/20/17 07:15 06/24/17 07:14 Acetaminophen (Tylenol Tab) 650 mg Q4H PRN PO 06/20/17 08:30 07/20/17 08:29 06/21/17 21:19 650 MG Al Hydrox/Mg Hydrox/Simethicone (Maalox Max Susp) 15 ml Q4H PRN PO 06/20/17 08:30 07/20/17 08:29 Ondansetron HCl (Zofran Inj) 4 mg Q6H PRN IV 06/20/17 08:30 07/20/17 08:29 Levofloxacin 750 mg/Prmx 150 ml @ 100 mls/hr Q24H IV 06/21/17 08:00 06/27/17 07:59 06/22/17 07:37 100 MLS/HR Piperacillin Sod/ Tazobactam Sod 3.375 gm/Dextrose 115 ml @ 28.75 mls/ hr Q8H IV 06/20/17 16:00 06/27/17 15:59 06/22/17 07:37 28.75 MLS/HR Piperacillin Sod/ Tazobactam Sod (Consult) 1 ea UD PRN N/A 06/20/17 09:45 07/20/17 09:44 Gabapentin (Neurontin Tab) 800 mg TID PO 06/20/17 14:00 07/20/17 13:59 06/22/17 09:29 800 MG Fluconazole (Diflucan Susp) 100 mg QAM PO 06/21/17 09:00 06/27/17 08:59 06/21/17 09:00 100 MG Enoxaparin Sodium (Lovenox Inj) 40 mg QAM SQ 06/21/17 09:00 07/21/17 08:59 06/22/17 09:29 40 MG Vancomycin HCl (Consult) 1 ea UD PRN N/A 06/21/17 11:30 07/21/17 11:29 Vancomycin HCl 1250 mg/Sodium Chloride 275 ml @ 125 mls/hr Q8H IV 06/22/17 11:00 06/28/17 09:59 06/22/17 10:58 125 MLS/HR Levalbuterol (Xopenex Hfa Inhaler) 2 puffs QID PRN INH 06/22/17 10:45 07/22/17 10:44 Vital Signs: Date Time Temp Pulse Resp B/P (MAP) Pulse Ox O2 Delivery O2 Flow Rate FiO2 06/22/17 12:43 Nasal Cannula 5.0 06/22/17 11:39 36.4 98 19 106/73 (84) 96 Nasal Cannula 5.0 06/22/17 08:47 Oxymask 4.0 06/22/17 08:47 93 Nasal Cannula 5.0 06/22/17 08:11 37.0 102 19 114/72 (86) 94 Nasal Cannula 5.0 06/22/17 04:45 37.6 114 20 110/69 (83) 94 Nasal Cannula 5.0 06/22/17 04:00 Oxymask 4.0 06/21/17 23:59 Oxymask 4.0 06/21/17 23:07 37.2 106 20 112/69 (83) 96 Oxymask 4.0 06/21/17 20:00 92 Oxymask 4.0 06/21/17 19:51 37.2 114 20 122/77 (92) 91 Nasal Cannula 4.0 06/21/17 16:30 95 Room Air 9.0 06/21/17 15:24 37.2 97 22 116/76 (89) 92 Oxymask 5.0 Laboratory Results: Last 24 Hours Test 06/21/17 16:05 06/22/17 07:10 Urine Color YELLOW Urine Appearance CLOUDY Urine pH 5.0 Urine Specific [place] 1.033 Urine Protein 1+ Urine Glucose (UA) NEG Urine Ketones 1+ Urine Occult Blood 2+ Urine Nitrite NEG Urine Bilirubin NEG Urine Urobilinogen NEG Urine Leukocyte Esterase NEG Urine WBC (Auto) 5-10 /hpf Urine RBC (Auto) 0-4 /hpf Urine Hyaline Casts (Auto) 5-10 /lpf Urine Epithelial Cells (Auto) >30 /lpf Urine Bacteria (Auto) NEG Urine Yeast (Auto) Urine Opiates Screen POS Urine Methadone, Qualitative NEG Urine Barbiturates NEG Urine Phencyclidine (PCP) Level NEG Ur Amphetamine/Methamphetamine NEG MDMA (Ecstasy) Screen NEG Urine Benzodiazepines Screen NEG Urine Cocaine Metabolite POS Urine Marijuana (THC) POS Sodium Level 138 mmol/L Potassium Level 3.3 mmol/L Chloride Level 107 mmol/L Carbon Dioxide Level 22 mmol/L Anion Gap 8.0 mmol/L Blood Urea Nitrogen 7 mg/dl Creatinine 0.66 mg/dl Est Creatinine Clear Calc Drug Dose 129.0 ml/min Estimated GFR () 129.9 Estimated GFR (Non- 112.1 BUN/Creatinine Ratio 9.8 Random Glucose 95 mg/dl Calcium Level 8.2 mg/dl Phosphorus Level 2.1 mg/dl Magnesium Level 2.2 mg/dl
[2017-06-22] MEDS ORDERED: LEVALBUTEROL/IPRATROPIUM NEB INH SCH (15:00)
[2017-06-22] MEDS: POT PHOSPHATE MONOBASIC W/ SOD TAB PO SCH ×3 (16:45→21:34)
[2017-06-22] MEDS: IPRATROPIUM BROMIDE NEB SOLN 0.02% 2.5 ML VIAL INH SCH (19:49)
[2017-06-22] MEDS: LEVALBUTEROL 1.25MG/0.5ML NEB INH SCH (19:49)
--- NOTE | 2017-06-23 00:01 | NUR ---
a/id: refer to emr for head to toe assessment. pt denies complaints of pain or shortness of breath at present time. vss. iv abx's per orders. guards x2 at bedside. call griffith within reach, will continue to monitor. unknown d/c at this time.
[2017-06-23] MEDS ORDERED: VANCOMYCIN TROUGH ONE ×3 (02:30→10:30)
[2017-06-23] MEDS: ACETAMINOPHEN 325 MG TAB PO PRN (03:11)
[2017-06-23] MEDS: VANCOMYCIN IV 1,250 MG in SODIUM CHLORIDE 0.9% 250ML 250 ML IV SCH (03:12)
[2017-06-23 03:30] VITALS: BP 114/72; PULSE 72; TEMP 37.1; O2SAT 93
[2017-06-23] MEDS ORDERED: DiphenhydrAMINE HCL 50 MG/ML VIAL ONE (03:39)
[2017-06-23] MEDS ORDERED: NURSING VERBAL MED ORDER ONE (03:45)
[2017-06-23] MEDS ORDERED: DiphenhydrAMINE HCL 50 MG/ML VIAL IV ONE (04:00)
--- NOTE | 2017-06-23 04:00 | NUR ---
A: REFER TO EMR FOR HEAD TO TOE ASSESSMENT. PT DENIES COMPLAINTS OF PAIN. PT COMPLAINED EARLIER OF NUMBNESS TO RIGHT ARM AND RIGHT LEG. PT STATES SWELLING TO RIGHT SIDE WELL. PT STATES "I'M HAVING AN ALLERGIC REACTION". [employer] EXPERT RESIDENT PAGED AND NOTIFIED OF PTS CONCERNS- ORDERS RECEIVED. WILL CONTINUE TO MONITOR.
[2017-06-23 07:24] VITALS: BP 123/80; PULSE 72; TEMP 37; O2SAT 94
[2017-06-23 07:43] VITALS: PULSE 99; O2SAT 95
[2017-06-23] MEDS: IPRATROPIUM BROMIDE NEB SOLN 0.02% 2.5 ML VIAL INH SCH (07:43)
[2017-06-23] MEDS: LEVALBUTEROL 1.25MG/0.5ML NEB INH SCH (07:43)
[2017-06-23] MEDS: LEVOFLOXACIN / D5W 750 MG in PREMIXED IN D5W 150 ML IV SCH (08:05)
[2017-06-23 08:10] LABS: HEMATOCRIT 33.7 % (37-47); HEMOGLOBIN 11.4 g/dL (12.0-16.0); MEAN CELL VOLUME 87.8 fL (80-100); MEAN CORPUSCULAR HEMOGLOBIN 29.7 pg (25-34); MEAN CORPUSCULAR HGB CONC 33.8 g/dl (32-36); MEAN PLATELET VOLUME 9.4 fL (7.4-10.4); PLATELET COUNT 202 K/uL (130-400); RED CELL DISTRIBUTION WIDTH CV 14.9 % (11.5-14.5); RED CELL DISTRIBUTION WIDTH SD 47.9 fL (36.4-46.3); WHITE BLOOD COUNT 5.44 K/uL (4.8-10.8)
[2017-06-23 08:29] LABS: CALCIUM 8.8 mg/dl (8.5-10.1); CREATININE 0.84 mg/dl (0.60-1.20); POTASSIUM 3.4 mmol/L (3.5-5.1)
[2017-06-23 08:31] LABS: PHOSPHORUS 2.7 mg/dl (2.5-4.9)
[2017-06-23] MEDS: ENOXAPARIN 40 MG/0.4 ML SYR SQ SCH (09:00)
[2017-06-23] MEDS: FLUCONAZOLE SUSP 100 MG/10 ML UDP PO SCH (09:35)
[2017-06-23] MEDS: PIPERACILL/TAZOBAC IV 3.375 GM in DEXTROSE 5% 100ML IV SCH (09:35)
[2017-06-23] MEDS: GABAPENTIN 800 MG TAB PO SCH (09:35)
--- NOTE | 2017-06-23 09:56 | Pulmonology Progress Note ---
Pulmonary Progress Note Date of Service Jun 23, 2017. Attending Dr. Baker Subjective Patient seen and examined. She states that she is feeling 100% better today. She denies any coughing, chest pain, dyspnea. She does complain of tingling in upper extremities since getting Levofloxacin. She is also complaining of upper and lower extremity swelling. Objective Vital signs reviewed. MAXIMUM TEMPERATURE 37.1, blood pressure 114/72 to 123/80 , pulse 72-99, respiratory rate 19-20, pulse oximetry 93-95% on RA. She is currently 5.6L positive. Gen.: Sitting up in bed. Speaking in telephone without any respiratory distress HEENT: Abrasion of chin CVS: S1-S2 regular rate and rhythm, no murmurs rubs or gallops appreciated Lungs:Trace crackles bilaterally. Abdomen: Soft nontender, nondistended, and bowel sounds positive Extremities: No clubbing, no cyanosis, trace edema bilaterally lower and upper extremity Laboratory data reviewed. Imaging reviewed. Medications reviewed. Other studies K 3.4, Cr 0.84 WBC: 22K--13K--5.44 Ig IgA: 202 IgM: >245 Utox + for opiates, cocaine, and marijuana Pending: ANCA panel, mycoplasma, hypersensitivity pneumonitis panel, QuantiFERON GOLD HIV 1 and 2 antibodies negative Microbiology: Blood cultures 04/20/2017 showing no growth to date Nasal MRSA DNA probe: Positive Venous Dopplers bilateral lower extremity: Within normal limits Active pulmonary Medications: 1. Vancomycin IV 1.25 every 8 hours 2. Fluconazole 100 mg daily 3. Levofloxacin 750 mg IV daily 4. Zosyn 3.375 g every 8 hours Assessment & Plan Hypoxemic respiratory failure Bilateral pulmonary opacities Pneumomediastinum Oral candidiasis Polysubstance abuse. Tonya appears to be much improved for a respiratory standpoint. She is no longer requiring oxygen supplementation. At the current time, continue supplemental oxygen to maintain an SaO2 above 92 % prn. Pneumomediastinum will likely resolve spontaneously. No aggressive intervention needed at this time. Marijuana smoking is the likely culprit. Smoking cessation counseling provided. Continue with nebulizers every 4-6 hours. I would continue to treat for pneumonia with broad-spectrum antibiotics can switch over to clindamycin or bactrim to cover MRSA and doxycycline to cover atypicals. Hypersensitivity pneumonitis panel, Legionella, mycoplasma as well as vasculitic and connective tissue workup still pending. QuantiFERON Gold still pending. Continue to treat with fluconazole for oral thrush. I will sign of case today. She should follow up with [facility] in 1-2 weeks post hospital discharge. Please contact me if you have any other questions or concerns. Data Medications: Current Inpatient Medications Medications (Trade) Dose Ordered Sig/Mary Jane Route Start Time Stop Time Status Last Admin Dose Admin Ioversol (Optiray 320) 111 ml UD PRN IV 06/20/17 07:15 06/24/17 07:14 Acetaminophen (Tylenol Tab) 650 mg Q4H PRN PO 06/20/17 08:30 07/20/17 08:29 06/23/17 03:11 650 MG Al Hydrox/Mg Hydrox/Simethicone (Maalox Max Susp) 15 ml Q4H PRN PO 06/20/17 08:30 07/20/17 08:29 Ondansetron HCl (Zofran Inj) 4 mg Q6H PRN IV 06/20/17 08:30 07/20/17 08:29 Levofloxacin 750 mg/Prmx 150 ml @ 100 mls/hr Q24H IV 06/21/17 08:00 06/27/17 07:59 06/23/17 08:05 100 MLS/HR Piperacillin Sod/ Tazobactam Sod 3.375 gm/Dextrose 115 ml @ 28.75 mls/ hr Q8H IV 06/20/17 16:00 06/27/17 15:59 06/22/17 23:40 28.75 MLS/HR Piperacillin Sod/ Tazobactam Sod (Consult) 1 ea UD PRN N/A 06/20/17 09:45 07/20/17 09:44 Gabapentin (Neurontin Tab) 800 mg TID PO 06/20/17 14:00 07/20/17 13:59 06/22/17 21:34 800 MG Fluconazole (Diflucan Susp) 100 mg QAM PO 06/21/17 09:00 06/27/17 08:59 06/21/17 09:00 100 MG Enoxaparin Sodium (Lovenox Inj) 40 mg QAM SQ 06/21/17 09:00 07/21/17 08:59 06/22/17 09:29 40 MG Vancomycin HCl (Consult) 1 ea UD PRN N/A 06/21/17 11:30 07/21/17 11:29 Vancomycin HCl 1250 mg/Sodium Chloride 275 ml @ 125 mls/hr Q8H IV 06/22/17 11:00 06/28/17 09:59 06/23/17 03:12 125 MLS/HR Ipratropium Spencer (Atrovent 0.02% 0.5MG/2.5ML Neb) 0.5 mg Q6R INH 06/22/17 15:00 07/22/17 14:59 06/23/17 07:43 0.5 MG Levalbuterol (Xopenex 1.25MG/ 0.5ML Neb) 1.25 mg Q6R INH 06/22/17 15:00 07/22/17 14:59 06/23/17 07:43 1.25 MG Vital Signs: Date Time Temp Pulse Resp B/P (MAP) Pulse Ox O2 Delivery O2 Flow Rate FiO2 06/23/17 07:43 99 16 95 Room Air 06/23/17 07:24 37.0 72 18 123/80 (94) 94 06/23/17 04:00 Room Air 06/23/17 03:30 37.1 72 18 114/72 (86) 93 Room Air 06/22/17 23:59 Nasal Cannula 3.0 06/22/17 23:39 37.1 87 18 122/81 (95) 93 Room Air 06/22/17 19:50 Room Air 06/22/17 19:49 96 16 95 Room Air 06/22/17 19:10 36.9 85 22 109/74 (86) 93 Room Air 06/22/17 19:02 94 Room Air 06/22/17 16:00 Nasal Cannula 2.0 06/22/17 15:21 37.3 96 20 110/68 (82) 95 Nasal Cannula 2.0 06/22/17 12:43 Nasal Cannula 5.0 06/22/17 11:39 36.4 98 19 106/73 (84) 96 Nasal Cannula 5.0 Laboratory Results: Last 24 Hours Test 06/23/17 07:56 06/23/17 08:00 White Blood Count 5.44 K/uL Red Blood Count 3.84 M/uL Hemoglobin 11.4 g/dL Hematocrit 33.7 % Mean Corpuscular Volume 87.8 fL Mean Corpuscular Hemoglobin 29.7 pg Mean Corpuscular Hemoglobin Concent 33.8 g/dl RDW Standard Deviation 47.9 fL RDW Coefficient of Variation 14.9 % Platelet Count 202 K/uL Mean Platelet Volume 9.4 fL Sodium Level 141 mmol/L Potassium Level 3.4 mmol/L Chloride Level 109 mmol/L Carbon Dioxide Level 23 mmol/L Anion Gap 9.0 mmol/L Blood Urea Nitrogen 4 mg/dl Creatinine 0.84 mg/dl Est Creatinine Clear Calc Drug Dose 101.3 ml/min Estimated GFR () 102.2 Estimated GFR (Non- 88.2 BUN/Creatinine Ratio 5.3 Random Glucose 102 mg/dl Calcium Level 8.8 mg/dl Phosphorus Level 2.7 mg/dl
--- NOTE | 2017-06-23 10:00 | NUR ---
notified by head correction officer that the patient has been released from [facility] and will no longer need supervision. clinical coordinator Ashley MILLER notified.
[2017-06-23] MEDS ORDERED: PRVHFAIN INH (10:26)
[2017-06-23] MEDS ORDERED: DOXY100C76 PO (10:26)
[2017-06-23] MEDS ORDERED: DFLUDL100 PO (10:26)
--- NOTE | 2017-06-23 10:42 | Discharge Instructions ---
Discharge Instructions Date of Service Jun 23, 2017. Admission Reason for Admission: Bilateral Pneumonia Discharge Discharge Diagnosis / Problem: Pneumonia Discharge Goals Goal(s): Decrease discomfort, Improve function Activity Recommendations Activity Limitations: resume your previous activity . Instructions / Follow-Up Instructions / Follow-Up You were admitted to [facility] due to a severe pneumonia. Below are the medical problems addressed during your admission: Pneumonia - this was a severe pneumonia, on both sides of your lungs, and you were treated with IV antibiotics, including zosyn, levaquin and vancomycin - you will be discharged home on 8 days of an oral medication called doxycycline to make 10 days in total - we will also be discharging you with an inhaler to use as needed for shortness of breath or wheezing - given the extent of your pneumonia, several other blood tests were drawn to try and determine if there was an underlying cause, most of these tests are still pending and can be discussed with you when you follow up with the pulmonary doctor and family doctor in clinic - we strongly recommend not smoking, either cigarettes or marijuana, as this can worsen your lung function Thrush - you were also diagnosed with thrush and treated with fluconazole - please continue the course of fluconazole - given that thrush can sometimes be a sign of an underlying deficiency of your immune system, we checked an HIV and hepatitis B test, which were negative You can continue to take your other home medications as prescribed. If you experience worsening shortness of breath, cough, hallucinations, fever or chills , please seek medical attention. Current Hospital Diet Patient's current hospital diet: AHA Diet (Heart Healthy) Discharge Diet Recommended Diet: AHA Diet (Heart Healthy) Pending Studies Studies pending at discharge: yes List of pending studies: Hypersensitivity pneumonitis panel, Legionella, mycoplasma as well as vasculitic and connective tissue workup and QuantiFERON Gold still pending. Medical Emergencies . Who to Call and When: Medical Emergencies: If at any time you feel your situation is an emergency, please call 911 immediately. . Non-Emergent Contact Non-Emergency issues call your: Primary Care Provider . . "Provider Documentation" section prepared by Alanis Lopez. . VTE Core Measure Inpt VTE Proph given/why not?: Enoxaparin (Lovenox)SQ
--- NOTE | 2017-06-23 10:57 | Discharge Summary ---
Discharge Summary Date of Service Jun 23, 2017. Discharge Summary Admission Date: Jun 20, 2017 at 08:32 Discharge Date: Jun 23, 2017 Discharge Disposition: Home Principal Diagnosis: Bilateral Pneumonia Problems/Secondary Diagnoses: 1) Thrush 2) Seizure disorder 3) Hyperlipidemia Procedures: CHEST ONE VIEW PORTABLE HISTORY: hypoxia COMPARISON: None. FINDINGS: No focal lung consolidations. No pleural effusions. The heart is normal in size. Cervical spinal fusion hardware. Left supraclavicular subcutaneous emphysema. There is evidence for pneumomediastinum which extends into the neck. Gas within the apex of the left pleural is likely due to extension from the pneumomediastinum or could represent a tiny pneumothorax. Deformity within the right lateral ribs suggests old, healed fractures. IMPRESSION: Pneumomediastinum which extends into the extends into the neck. There is also trace gas within the left apical pleural space which could be due to extension of the pneumomediastinum or a tiny pneumothorax. HEAD CT NONCONTRAST CT DOSE: 2423.66 mGy.cm HISTORY: eval for trauma TECHNIQUE: Multiaxial CT images of the head were performed without the use of intravenous contrast. Automated exposure control was utilized for this study. A dose lowering technique was utilized adhering to the principles of ALARA. Comparison: None. Findings: There is soft tissue gas at the base of the skull. This corresponds to the pneumomediastinum seen on the prior chest x-ray. The paranasal sinuses and mastoid air cells are clear. The calvarium and skull base are intact. The ventricles and sulci are within normal limits. There is no mass, hematoma, midline shift, or acute infarct. Impression: No acute intracranial abnormality. Soft tissue gas at the skull base likely a result of the pneumomediastinum seen on the prior chest x-ray. CHEST CTA for PULMONARY ARTERIES CT DOSE: HISTORY: Chest congestion. Mid chest pain. TECHNIQUE: Multiaxial CT images of the chest were performed following the intravenous administration of contrast to evaluate the pulmonary arteries. Maximal intensity projection images were also obtained. A dose lowering technique was utilized adhering to the principles of ALARA. COMPARISON STUDY: Chest 06/20/2017. FINDINGS: There is extensive pneumomediastinum extends into the neck. No pneumothorax. No pleural effusions. The esophagus and trachea appear intact. Small amount of mucoid material within the proximal trachea and right mainstem bronchus. No mediastinal hematoma or mediastinal fluid. Trace posterior pericardial fluid. No mediastinal or hilar lymphadenopathy. Normal caliber thoracic aorta with no evidence for dissection. The heart is normal in size. Motion artifact resulting in suboptimal evaluation of some of the segmental and subsegmental pulmonary arteries. However, no definite filling defects identified within the pulmonary arteries to suggest pulmonary embolus. Old, healed right-sided rib fractures. No acute fractures identified within the visualized osseous structures. Extensive groundglass airspace opacities involving the majority of the upper lobes as well as patchy areas involving the bilateral lower lobes and right middle lobe. IMPRESSION: 1. Extensive pneumomediastinum which extends into the neck. 2. The esophagus and trachea are intact. 3. Trace pericardial fluid. No mediastinal hematoma or mediastinal fluid. 4. No evidence for pulmonary vessels limitations as described above. 5. Extensive groundglass airspace opacities seen throughout the lungs. This is consistent with a pneumonia.] Contusions are considered less likely. ABDOMEN AND PELVIS CT WITH IV CONTRAST CT DOSE: HISTORY: eval for elevated WBC TECHNIQUE: Multiaxial CT images of the abdomen and pelvis were performed following the use of intravenous contrast. A dose lowering technique was utilized adhering to the principles of ALARA. COMPARISON STUDY: None. FINDINGS: Please refer to the dedicated chest CT performed same day for further evaluation of the chest abnormalities. There is again noted pneumomediastinum. Trace extension of the pneumomediastinum into the retrocrural space. There is no pneumoperitoneum or pneumatosis. No acute fractures within the visualized osseous structures. The liver, gallbladder, pancreas, spleen, adrenal glands, and kidneys are unremarkable. No retroperitoneal lymphadenopathy. The bladder, uterus, and bilateral adnexa are unremarkable. No bowel wall thickening or obstruction. Normal appendix. IMPRESSION: 1. Please refer to the dedicated chest CT performed the same day for further evaluation of the chest abnormalities including the extensive pneumomediastinum. There is trace extension of the pneumomediastinum into the retrocrural space. 2. Otherwise, no significant abnormality identified within the abdomen or pelvis. 3. No bowel wall thickening or obstruction. 4. Normal appendix. VENOUS DOPPLER LWR EXT BILA CLINICAL HISTORY: 36 years-old Female presenting with Rule out DVTs, bilateral pneumonia, lower extremity edema left greater than right. TECHNIQUE: Real-time grayscale and color and spectral Doppler ultrasound imaging of the veins of the bilateral lower extremities was performed. Compression and augmentation were also utilized. COMPARISON: CT of the chest from 06/20/2017. FINDINGS: Right: Common femoral vein: Patent. Femoral vein: Patent. Greater saphenous vein: Patent. Popliteal vein: Patent. Calf veins: Patent. Left: Common femoral vein: Patent. Femoral vein: Patent. Greater saphenous vein: Patent. Popliteal vein: Patent. Calf veins: Patent. Other: None. IMPRESSION: Consultations: Pulmonary - Dr. Baker and Dr. Carr Medication Reconciliation New Medications: Albuterol (Ventolin Hfa) 60 Puffs/5400 Mcg Aers 2 PUFF INH Q6H PRN for SOB/Wheezing for 30 Days, #1 INHALER Doxycycline Monohydrate (Monodox) 100 Mg Cap 100 MG PO BID for 8 Days, #16 CAP Fluconazole (Fluconazole) 100 Mg/10 Ml Susp 100 MG PO QAM for 5 Days, #1 BTL Continued Medications: Gabapentin (Neurontin) 100 Mg Cap 200 MG PO TID, CAP Gabapentin (Neurontin) 800 Mg Tab 800 MG PO TID, TAB Simvastatin (Zocor) 40 Mg Tab 40 MG PO QPM, TAB Discharge Exam Ms. Oliver reports she feels well today. She states her coughing is much improved, and that she is no longer short of breath at rest. She denies chest pain, n/v, abdominal pain. She reports that she has not had any more hallucinations. She states last night she felt as though she was having a mild allergic reaction with some swelling in her arm, but that this has resolved. She does report diarrhea with the antibiotic use. Review of Systems: Constitutional: No fever, No chills, No sweats Respiratory: + cough, No wheezing, No shortness of breath, No dyspnea at rest Cardiovascular: No chest pain, No orthopnea, No PND, No edema Abdomen: + diarrhea, No pain, No nausea, No vomiting Physical Exam: General Appearance: WD/WN, no apparent distress Respiratory/Chest: chest non-tender, no respiratory distress, no accessory muscle use, + wheezing (slight wheezing bilaterally) Cardiovascular: regular rate, rhythm, no edema, no gallop, no JVD, no murmur , normal peripheral pulses Abdomen / GI: normal bowel sounds, non tender, soft, no organomegaly, no pulsatile mass Hospital Course Ms. Oliver is a 36 year old female with a history of hepatitis C and drug use who presented with bilateral pneumonia. Below are the medical problems addressed during her stay: Hypoxic Respiratory Failure secondary to Bilateral Pneumonia - pulmonary consulted -> Hypersensitivity pneumonitis panel, Legionella, mycoplasma & vasculitic and connective tissue workup still pending -> QuantiFERON Gold still pending. - likely underlying immunodeficiency that will be further discussed in clinic - treated with zosyn, levaquin and vancomycin, given positive MRSA swab - initially required oxygen via nasal cannula, but on d/c, she was at 95% on room air - treated with levalbuterol/ipratropium nebs - She will be discharged home on 8 more days of doxycycline (10 days total) and Ventolin inhalers to use prn - follow up with pulmonary and PCP in clinic Hallucinations - likely secondary to hypoxia and illness, given that her oxygen has been off both times when she has had the hallucinations - head CT negative - apart from her two episodes where her oxygen was off early in treatment, she has not reported any more hallucinations Acute Kidney Injury - creatinine initially was 1.4, improved with IV fluids to 0.66 Hypokalemia - potassium 3.4 today after supplementation - magnesium normal at 2.2 Low Phosphate - phosphate 2.1, repleted with phospha-250 1 tablet q4h x3 doses and improved to 2.7 Oral Thrush - continue fluconazole on discharge - HIV and Hep B negative Seizure Disorder - continue gabapentin Hyperlipidemia - simvastatin held in inpatient setting, restarting on d/c Resident Physician Supervision Note: I interviewed and examined the patient. Discussed with Dr. Alanis Lopez and agree with findings and plan as documented in the note. Any exceptions or clarifications are listed here: None Patient admitted with significant bilateral pneumonia, positive MRSA swab necessitated vancomycin overall clinical improvement Vitals are stable oxygen requirement now tolerating room air lung exam has normalized Bilateral pneumonia with most improvement after covering mrsa, will have home on doxycycline and will have follow up in resident clinic Chronic hepatitis C will need outpatient follow-up Documented By: Keith Barajas Total Time Spent: Greater than 30 minutes This includes examination of the patient, discharge planning, medication reconciliation, and communication with other providers. Discharge Instructions Please refer to the electronic Patient Visit Report (Discharge Instructions) for additional information. Additional Copies To Aminta York MD Resident Tracking Resident Involvement: Resident Care Provided Care Provided: [facility]
--- NOTE | 2017-06-23 11:09 | NUR ---
maxillofacial prosthetics dentist [facility]: Per request of Dr. Lopez I call to arrange a follow up appointment for pt with Dr. York. However, the medical office scheduler tells me that she needs insurance info to schedule the appointment. I do not have insurance info because the pt is being released from detention and will no longer have the coverage listed in the EMR. I add the recommended follow up info to the DC instructions so pt can call to schedule the appointments. "Please, follow up with Dr. Aminta York. She is one of the resident physicians who saw you while you were here in the hospital. *This office is located in [address] of [facility] next to this [facility]. You will need to call and schedule this appointment. The office phone number is [phone]. Please, follow up with Dr. Moore (pulmonology/lung doctor). *This office is located in [address] of [facility] next to [facility]. You will need to call and schedule this appointment. The phone number is [phone]. If you do not currently have health insurance and you reside in [facility] then you may be eligible to receive free care at [facility] in [facility]. *This office is located at [address] in [place]. The office phone number is [phone]. You can call me at the number listed below if you have any questions regarding follow up appointments or if you need assistance."
[2017-06-23 11:36] VITALS: BP 123/80; PULSE 99; TEMP 37; O2SAT 95
[2017-06-23] MEDS ORDERED: GABA800T PO (11:40)
[2017-06-23 11:50] VITALS: BP 129/73; PULSE 72; TEMP 36.8; O2SAT 94
--- NOTE | 2017-06-23 12:07 | NUR ---
discharge instructions and medications reviewed with patient. verbalized understanding. IV site discontinued, catheter intact. MDI provided by respiratory. patient awaiting ride home from her .
--- NOTE | 2017-06-23 12:09 | Pharmacy Progress Note ---
Pharmacy Abx Dose Short Note Date of Service Jun 23, 2017. Assessment & Plan Assessment * 36 year old female receiving vancomycin 1250mg (13.7mg/kg) IV Q 8 hours + Zosyn 3.375gm ext-infusion IV Q 8 hours for treatment of bilateral pneumonia * Day # 3 of IV vancomycin therapy and day # 4 IV Zosyn * + MRSA nasal swab * Multiple serology results pending * Afebrile and leukocytosis has resolved * Renal fxn stable, eCrCl ~100cc/min Plan Vancomycin * Trough level of 17.4 mcg/mL is therapeutic. * Continue dose of 1250 mg IV every 8 hours * Goal trough level for pulm infxn : 15 to 20 mcg/mL * Will repeat trough level in 2-3 days if therapy to continue Zosyn * Continue current dose Pharmacy will continue to follow and will adjust dose/frequency as necessary. Thank you.
--- NOTE | 2017-06-24 08:29 | EDITING REQUIRED CODING QUERY ---
CODING QUERY To promote full compliance with coding requirements relating to patient care, provider participation is requested in all cases of plant physiologist uncertainty. Please assist us with the question(s) below: Coding Question(s): Please clarify below, in your clinical opinion, regarding the Hypoxic Respiratory Failure. ( x ) Acute Hypoxic Respiratory Failure ( ) Acute on Chronic Hypoxic Respiratory Failure ( ) Chronic Hypoxic Respiratory Failure ( ) Unspecified Hypoxic Respiratory Failure Physician's Response(s): Thank you Jenni Dumont Principal Diagnosis: "_that condition established after study, to be chiefly responsible for occasioning the admission of the patient to the hospital for care." Co-Existing Principal Diagnosis: "_when two or more diagnoses equally meet the criteria for principal diagnosis as determined by the circumstances of admission, diagnostic work up, and/or therapy provided, and the Alphabetic Index, Tabular List, or another coding guideline does not provide sequencing direction, any one of the diagnoses may be sequenced first." "When the physician has documented what appears to be a current diagnosis in the body of the record, but has not included the diagnosis in the final diagnostic statement, the physician should be asked whether the diagnosis should be added." ([facility] 2 QTR90. p3-4)
--- NOTE | 2017-06-24 08:33 | EDITING REQUIRED CODING QUERY ---
CODING QUERY To promote full compliance with coding requirements relating to patient care, provider participation is requested in all cases of ordering box operator uncertainty. Please assist us with the question(s) below: Coding Question(s): Bilateral Pneumonia is documented with positive MRSA nasal swab and documented Bilateral Pneumonia with most improvement after covering MRSA. Please clarify below, in your clinical opinion, regarding the Pneumonia. ( xx ) Possible MRSA Pneumonia ( ) Possible Other Pneumonia - Specify ( ) Pneumonia, Unspecified Physician's Response(s): Thank you Jenni Dumont Principal Diagnosis: "_that condition established after study, to be chiefly responsible for occasioning the admission of the patient to the hospital for care." Co-Existing Principal Diagnosis: "_when two or more diagnoses equally meet the criteria for principal diagnosis as determined by the circumstances of admission, diagnostic work up, and/or therapy provided, and the Alphabetic Index, Tabular List, or another coding guideline does not provide sequencing direction, any one of the diagnoses may be sequenced first." "When the physician has documented what appears to be a current diagnosis in the body of the record, but has not included the diagnosis in the final diagnostic statement, the physician should be asked whether the diagnosis should be added." ([facility]oding [facility] 2 QTR90. p3-4)
[2017-06-24 15:04] LABS: QUANTIF MITOGEN-NIL 8.51 IU/ML; QUANTIFERON NEGATIVE (NEGATIVE); QUANTIFERON NIL 0.02 IU/ML
[2017-06-25 06:30] LABS: HEPATITIS C RNA TMA QUAL Detected
== END 2017-06-23 13:15 | disposition home or self-care (01) | DRG 177 ==
LOC: C.EDB 05:56 → UNDOADMIN 08:32 → C.2T 08:32 → ENRESERV 08:53
PROVIDERS: ADMIT Internal Medicine; ATTEND Internal Medicine
DX: J15.212 Pneumonia due to Methicillin resistant Staphylococcus aureus (principal); J96.01 Acute respiratory failure with hypoxia; B37.0 Candidal stomatitis; R44.3 Hallucinations, unspecified; N17.9 Acute kidney failure, unspecified; J98.2 Interstitial emphysema; M79.89 Other specified soft tissue disorders; R84.5 Abnormal microbiological findings in specimens from respiratory organs and thorax; E87.6 Hypokalemia; G40.909 Epilepsy, unspecified, not intractable, without status epilepticus; B18.2 Chronic viral hepatitis C; F12.10 Cannabis abuse, uncomplicated; E78.5 Hyperlipidemia, unspecified; F17.200 Nicotine dependence, unspecified, uncomplicated; Z51.81 Encounter for therapeutic drug level monitoring; Z79.899 Other long term (current) drug therapy

== ENCOUNTER 2017-07-14 16:53 | Emergency (ER) | payer OTHER ==
[~2017-07-14] VITALS: Ht 165.1 cm; Wt 88.8 kg
[~2017-07-14 16:53] MED LIST changes: +GABA-112 PO; -MIRT15TA PO; -NRN600 PO; +PRVHFAIN INH; -SNQ/25 PO
[2017-07-14 16:57] VITALS: Ht 165.1 cm; Wt 88.8 kg
[2017-07-14] MEDS ORDERED: METHYLPREDNISOLONE 125 MG VIAL IV STA (17:20)
[2017-07-14] MEDS ORDERED: SODIUM CHLORIDE 0.9% 500ML 500 ML IV STA (17:20)
[2017-07-14] MEDS ORDERED: ALBUT/IPRATROP 3MG/0.5MG NEB 3 ML VIAL INH STA (17:20)
--- NOTE | 2017-07-14 17:26 | EMERGENCY ROOM VISIT NOTE ---
History First contact with patient: 17:05 Chief Complaint: RESPIRATORY PROBLEMS Stated Complaint: FEVER,RASH,HARD TO BREATHE History of Present Illness The patient is a 36 year old female who presents to the Emergency Room with complaints of a fever on and off for the last 4 days. She is also felt intermittent shortness of breath. She reports feeling chills, sweats and body aches. It has been low-grade at 99F. The patient has not been taking any medications for her symptoms. Patient was admitted to the hospital in the ICU 3 weeks ago for pneumonia. She never picked up her antibiotics upon discharge. She does not report being intubated. She denies any history of lung problems , however she is in every day smoker. She has been using her albuterol inhaler at home with mild symptomatic relief. She did not get an influenza vaccine this year. Review of Systems 10 system review performed and negative unless noted in HPI or below Past Medical/Surgical History Medical Problems: (1) Hepatitis C (2) No chronic diseases present Social History Smoking Status: Former Smoker Drug Use: heroin, marijuana Marital Status: single Occupation Status: unemployed Current/Historical Medications Scheduled Gabapentin (Neurontin), 600 MG PO TID Scheduled PRN Albuterol (Ventolin Hfa), 2 PUFFS INH Q6H PRN for SOB/Wheezing Physical Exam Vital Signs Date Time Temp Pulse Resp B/P (MAP) Pulse Ox O2 Delivery O2 Flow Rate FiO2 07/14/17 20:21 36.6 90 16 126/80 98 07/14/17 20:13 90 16 126/80 98 Room Air 07/14/17 18:16 88 17 115/80 96 Room Air 07/14/17 18:05 Room Air 07/14/17 16:57 36.6 97 20 120/84 100 Room Air Physical Exam VITALS: Vitals are noted on the nurse's note and reviewed by myself. Vital signs stable. GENERAL: 36-year-old female, in no acute distress, nondiaphoretic, well- developed well-nourished. SKIN: The skin was without rashes, erythema, edema, or bruising. HEAD: Normocephalic atraumatic. EARS: External auditory canals clear, tympanic membranes pearly sarmiento without erythema or effusion bilaterally. EYES: Conjunctivae without injection, sclerae without icterus. Extraocular movements intact. MOUTH: Mucous membranes moist. Tonsils are not enlarged. Pharynx without erythema or exudate. Uvula midline. Airway patent. Tongue does not deviate. NECK: Supple without nuchal rigidity. No lymphadenopathy. Cervical spine is nontender. No JVD. HEART: Regular rate and rhythm without murmurs gallops or rubs. LUNGS: Mild diffuse wheeze. No crackles or rhonchi. No tachypnea. ABDOMEN: Positive bowel sounds x 4.Soft, nontender, without organomegaly. No guarding or rebound tenderness. MUSCULOSKELETAL: No muscle atrophy, erythema, or edema noted. Strength 5/5 throughout. NEURO: Patient was alert and oriented to person place and time. Normal sensation to touch. No focal neurological deficits. Medical Decision & Procedures ER Provider Diagnostic Interpretation: CXR IMPRESSION: No active disease in the chest. Electronically signed by: Franki Ortiz M.D. 07/14/2017 6:49 PM Dictated Date/Time: 07/14/2017 6:49 PM The status of this report is Signed. Draft = Not yet reviewed or approved by Radiologist. Signed = Reviewed and approved by Radiologist. <AttendingPhy></AttendingPhy> <FamilyPhy>No Doctor, Assigned</FamilyPhy> < PrimaryPhy>No Doctor, Assigned</PrimaryPhy> <UnitNumber>[id number]</UnitNumber> <VisitNumber>[id number]</VisitNumber> Laboratory Results 07/14/17 17:45 Red Blood Count 4.64, Mean Corpuscular Volume 88.4, Mean Corpuscular Hemoglobin 30.6, Mean Corpuscular Hemoglobin Concent 34.6, Mean Platelet Volume 10.5, Neutrophils (%) (Auto) 64.3, Lymphocytes (%) (Auto) 26.9, Monocytes (%) (Auto) 4.7, Eosinophils (%) (Auto) 3.8, Basophils (%) (Auto) 0.1, Neutrophils # (Auto) 5.41, Lymphocytes # (Auto) 2.27, Monocytes # (Auto) 0.40, Eosinophils # (Auto) 0.32, Basophils # (Auto) 0.01 07/14/17 17:45 Test 07/14/17 17:29 07/14/17 17:45 07/14/17 19:30 Influenza Type A Antigen Neg for Influ A (NEG) Influenza Type B Antigen Neg for Influ B (NEG) White Blood Count 8.43 K/uL (4.8-10.8) Red Blood Count 4.64 M/uL (4.2-5.4) Hemoglobin 14.2 g/dL (12.0-16.0) Hematocrit 41.0 % (37-47) Mean Corpuscular Volume 88.4 fL (80-100) Mean Corpuscular Hemoglobin 30.6 pg (25-34) Mean Corpuscular Hemoglobin Concent 34.6 g/dl (32-36) Platelet Count 259 K/uL (130-400) Mean Platelet Volume 10.5 fL (7.4-10.4) Neutrophils (%) (Auto) 64.3 % Lymphocytes (%) (Auto) 26.9 % Monocytes (%) (Auto) 4.7 % Eosinophils (%) (Auto) 3.8 % Basophils (%) (Auto) 0.1 % Neutrophils # (Auto) 5.41 K/uL (1.4-6.5) Lymphocytes # (Auto) 2.27 K/uL (1.2-3.4) Monocytes # (Auto) 0.40 K/uL (0.11-0.59) Eosinophils # (Auto) 0.32 K/uL (0-0.5) Basophils # (Auto) 0.01 K/uL (0-0.2) RDW Standard Deviation 46.4 fL (36.4-46.3) RDW Coefficient of Variation 14.3 % (11.5-14.5) Immature Granulocyte % (Auto) 0.2 % Immature Granulocyte # (Auto) 0.02 K/uL (0.00-0.02) Anion Gap 6.0 mmol/L (3-11) Est Creatinine Clear Calc Drug Dose 107.6 ml/min Estimated GFR () 111.8 Estimated GFR (Non- 96.4 BUN/Creatinine Ratio 8.4 (10-20) Calcium Level 9.3 mg/dl (8.5-10.1) Total Bilirubin 0.2 mg/dl (0.2-1) Aspartate Amino Transf (AST/SGOT) 51 U/L (15-37) Alanine Aminotransferase (ALT/SGPT) 132 U/L (12-78) Alkaline Phosphatase 77 U/L (45-117) Total Protein 8.1 gm/dl (6.4-8.2) Albumin 3.8 gm/dl (3.4-5.0) Globulin 4.3 gm/dl (2.5-4.0) Albumin/Globulin Ratio 0.9 (0.9-2) Urine Color YELLOW Urine Appearance CLEAR (CLEAR) Urine pH 6.5 (4.5-7.5) Urine Specific Gonzales 1.015 (1.000-1.030) Urine Protein NEG (NEG) Urine Glucose (UA) NEG (NEG) Urine Ketones NEG (NEG) Urine Occult Blood TRACE (NEG) Urine Nitrite NEG (NEG) Urine Bilirubin NEG (NEG) Urine Urobilinogen NEG (NEG) Urine Leukocyte Esterase NEG (NEG) Urine RBC 0-4 /hpf (0-4) Urine WBC 0 /hpf (0-5) Urine Epithelial Cells 5-10 /lpf (0-5) Urine Bacteria NEG (NEG) Urine Test NEG (NEG) Medications Administered Medications (Trade) Dose Ordered Sig/Mary Jane Route Start Time Stop Time Status Last Admin Dose Admin Sodium Chloride 500 ml @ 999 mls/hr Q31M STAT IV 07/14/17 17:20 07/14/17 17:50 DC 07/14/17 18:03 999 MLS/HR Methylprednisolone Sodium Succinate (Solu-Medrol IV) 125 mg NOW STAT IV 07/14/17 17:20 07/14/17 17:24 DC 07/14/17 18:03 125 MG Albuterol/ Ipratropium (Duoneb) 3 ml ONE STAT INH 07/14/17 17:20 07/14/17 17:24 DC 07/14/17 18:03 3 ML ED Course Patient was seen and examined Vital signs including blood pressure were reviewed medications list was verified with patient Labs were obtained, and a saline lock was established The patient was given a DuoNeb treatment. She was medicated with Solu-Medrol. She was also hydrated with 500 mL normal saline. Upon reevaluation, she was resting comfortably in bed. We discussed the results of her workup. She voiced understanding, and was comfortable being discharged home. The case was also discussed with my supervising physician, who is in agreement with my plan. I reviewed discharge instructions the patient. They voiced understanding and had no further questions. Medical Decision Differential diagnosis: Bronchitis, pneumonia, , influenza , sepsis, UTI, This patient is a 36-year-old female that presents to the emergency department with complaints of fever and shortness of breath. She was recently admitted for pneumonia. She is a cigarette smoker. On exam, she had a mild wheeze. Otherwise, she was nontoxic in appearance. The patient is reportedly being worked up for an immunocompromise state. Her workup here reveals no leukocytosis. Her chest x-ray is clear. Influenza is negative. LFTs are slightly elevated, however this is likely due to a history of hep C. Blood cultures were drawn. She is not hypoxic. I believe she is stable to be discharged home. She was cautioned to follow up closely with her primary care physician for further workup. She was comfortable with this plan. I also encouraged her to return to the emergency department immediately with any new, worsening or concerning symptoms. This chart was completed in part utilizing [employer] Speech Voice Recognition software. Attempts were made to minimize the grammatical errors, random word insertions, pronoun errors and incomplete sentences. Any formal questions or concerns about the content, text or information contained within the body of this dictation should be directly addressed to the provider for clarification. Impression Primary Impression: Fever Departure Information Dispostion Home / Self-Care Condition GOOD Referrals No Doctor, Assigned (PCP) Patient Instructions My [facility] Additional Instructions You were evaluated in the emergency department for a fever and cough. There are no signs of pneumonia on x-ray. Please continue albuterol 2 puffs every 6 hours as needed for difficulty breathing. Stop smoking You have been examined and treated today on an emergency basis only. This is not a substitute for, or an effort to provide, complete comprehensive medical care. It is impossible to recognize and treat all injuries or illnesses in a single emergency department visit. It is therefore important that you follow up closely with [facility], your PCP, and/or your specialist(s). Call as soon as possible for an appointment. Please do not hesitate to return to the emergency department with any new, worsening or concerning symptoms.
[2017-07-14 17:57] LABS: BASO % 0.1 %; BASO ABS # 0.01 K/uL (0-0.2); EOS % 3.8 %; EOS ABS # 0.32 K/uL (0-0.5); HEMOGLOBIN 14.2 g/dL (12.0-16.0); IG# 0.02 K/uL (0.00-0.02); LYMPH % 26.9 %; LYMPH ABS # 2.27 K/uL (1.2-3.4); MEAN CELL VOLUME 88.4 fL (80-100); MEAN CORPUSCULAR HEMOGLOBIN 30.6 pg (25-34); MEAN CORPUSCULAR HGB CONC 34.6 g/dl (32-36); MEAN PLATELET VOLUME 10.5 fL (7.4-10.4); MONO % 4.7 %; NEUT % 64.3 %; NEUT ABS # 5.41 K/uL (1.4-6.5); PLATELET COUNT 259 K/uL (130-400); RED CELL DISTRIBUTION WIDTH CV 14.3 % (11.5-14.5); RED CELL DISTRIBUTION WIDTH SD 46.4 fL (36.4-46.3); WHITE BLOOD COUNT 8.43 K/uL (4.8-10.8)
[2017-07-14] MEDS ORDERED: GABA600T PO (18:11)
[2017-07-14] MEDS ORDERED: PRVHFAIN INH (18:11)
[2017-07-14 18:16] LABS: INFLUENZA B ANTIGEN Neg for Influ B (NEG)
[2017-07-14 18:22] LABS: ALBUMIN 3.8 gm/dl (3.4-5.0); CALCIUM 9.3 mg/dl (8.5-10.1); CREATININE 0.78 mg/dl (0.60-1.20); POTASSIUM 3.8 mmol/L (3.5-5.1)
[2017-07-14 18:25] LABS: TOTAL PROTEIN 8.1 gm/dl (6.4-8.2)
--- NOTE | 2017-07-14 18:51 | DIAGNOSTIC IMAGING REPORT ---
CHEST 2 VIEWS ROUTINE CLINICAL HISTORY: Fever, recent pneumonia COMPARISON STUDY: 06/20/2017 FINDINGS: The cardiac and mediastinal contours are normal. There is no evidence of focal pulmonary consolidation. There is no evidence of failure. No pleural effusions are visualized.[ Postsurgical changes are present within the cervical spine. There are old right-sided rib fractures. IMPRESSION: No active disease in the chest. Electronically signed by: Franki Ortiz M.D. 07/14/2017 6:49 PM Dictated Date/Time: 07/14/2017 6:49 PM
[2017-07-14 20:21] VITALS: BP 126/80; PULSE 90; TEMP 36.6; O2SAT 98
== END 2017-07-14 20:21 | disposition home or self-care (01) ==
LOC: C.EDB 16:56 → C.EDA 20:21
DX: R50.9 Fever, unspecified (principal); R06.02 Shortness of breath; F17.210 Nicotine dependence, cigarettes, uncomplicated; F11.90 Opioid use, unspecified, uncomplicated; F12.90 Cannabis use, unspecified, uncomplicated